=== PATIENT | male | born 1935 | race Two or more races ===

== ENCOUNTER → 2019-11-24 | Outpatient (CLI) | payer MEDICARE, OTHER ==
[~2019-11-24] MED LIST: CHOL20007 PO; DIGO0.12 PO; FINA5TAB4 PO; LEVO500T21 PO; LISI-275 PO; LORA-154 PO; MET25T PO; METF-489 PO; METO-159 PO; MONT10TA34 PO; PRAV20TA3 PO; RIVA20TA PO; SENN1CAP4 PO; TAM04C PO
[2019-11-24 16:21] LABS: White Blood Cell 4.6 10^3/uL (4.4-10.8)
[2019-11-24 16:23] LABS: Hematocrit 45.3 % (41.0-53.0); Hemoglobin 14.7 g/dL (13.5-17.5); Mean Corpuscular Hemoglobin 25.4 pg (28.0-32.0); Mean Corpuscular Hgb Conc. 32.4 g/dL (32.0-36.0); Mean Corpuscular Volume 78.4 fL (80.0-100.0); Platelet Count (auto) 179 10^3/uL (140-450); Red Blood Cells 5.77 10^6/uL (4.5-5.90); Red Cell Distribution Width 18.4 % (11.8-14.3)
[2019-11-24 16:29] LABS: Band Neutrophils % (manual) 0; Basophils % (manual) 0 (0.0-2.0); Blast Cells 0; Metamyelocytes % 0; Myelocytes % 0; Promyelocytes % 0; Reactive Lymphocytes 0
[2019-11-24 16:44] LABS: Albumin 3.2 g/dL (3.4-5.0); Calcium 8.7 mg/dL (8.5-10.1); Potassium 3.8 mmol/L (3.5-5.1)
[2019-11-24 16:48] LABS: Bilirubin, Direct 0.5 mg/dL (0-0.2); Bilirubin, Total 1.1 mg/dL (0.2-1.0)
[2019-11-24 19:34] LABS: Eosinophils % (manual) 4 (0-7); Lymphocytes % (manual) 23 (10.0-50.0); Monocytes % (manual) 16 (0-12)
== END | disposition home or self-care (01) ==
LOC: LAB 15:57
PROVIDERS: ATTEND Internal Medicine Cardiovascular Disease
DX: E03.9 Hypothyroidism, unspecified (principal); K90.9 Intestinal malabsorption, unspecified; C61 Malignant neoplasm of prostate; E29.1 Testicular hypofunction; N39.0 Urinary tract infection, site not specified; D51.9 Vitamin B12 deficiency anemia, unspecified; Z79.899 Other long term (current) drug therapy
CPT/HCPCS: 36415; 80048; 80061; 80076; 80162; 82306; 83036; 84153; 84403; 84443; 85007; 85027

== ENCOUNTER → 2019-12-20 | Outpatient (CLI) | payer MEDICARE, OTHER ==
[~2019-12-20] VITALS: Ht 172.7 cm; Wt 99.8 kg
[~2019-12-20] MED LIST changes: +ADENOSINE 84 MG in GIVE UN-DILUTED 0 ML IV ONE; +ADENOSINE 90 MG/30 ML INJ IV ONE; -CHOL20007 PO; -DIGO0.12 PO; -FINA5TAB4 PO; -LEVO500T21 PO; -LISI-275 PO; -LORA-154 PO; -MET25T PO; -METF-489 PO; -METO-159 PO; -MONT10TA34 PO; -PRAV20TA3 PO; -RIVA20TA PO; -SENN1CAP4 PO; -TAM04C PO
== END | disposition home or self-care (01) ==
LOC: Rad HDHVI 13:40
PROVIDERS: ATTEND Internal Medicine
DX: I10 Essential (primary) hypertension (principal); I25.2 Old myocardial infarction; E11.9 Type 2 diabetes mellitus without complications; E78.00 Pure hypercholesterolemia, unspecified; Z95.0 Presence of cardiac pacemaker; Z82.49 Family history of ischemic heart disease and other diseases of the circulatory system
CPT/HCPCS: 78452; 93005; 96374; 96375; A9500; J0153

== ENCOUNTER 2019-12-27 15:00 | Inpatient (IN) | payer MEDICARE, OTHER ==
[~2019-12-27] VITALS: Ht 172.7 cm; Wt 98.9 kg
[2019-12-27] MEDS ORDERED: PIPERACILLIN-TAZOB 3.375GM 100 ML IV ONE (15:30)
[2019-12-27] MEDS ORDERED: SODIUM CHLORIDE 0.9% 1,000 ML IV ONE (15:31)
[2019-12-27] MEDS ORDERED: SODIUM CHLORIDE 0.9% 1,000 ML IV SCH (16:09)
[2019-12-27] MEDS ORDERED: ALUM & MAG HYDROX-SIMETH LIQ(MAALOX) 30 ML PO PRN ×2 (16:15→23:45)
[2019-12-27] MEDS ORDERED: ACETAMINOPHEN 325 MG TAB PO PRN ×2 (16:15→23:45)
[2019-12-27] MEDS ORDERED: HYDROcodone-ACET 5/325MG TAB PO PRN (16:15)
[2019-12-27] MEDS ORDERED: MORPHINE SULF INJ 2 MG/ML SYRINGE 1ML IV PRN ×4 (16:15→23:45)
[2019-12-27] MEDS ORDERED: ALUM & MAG HYDROX-SIMETH LIQ(MAALOX) 30 ML PO ONE (16:15)
[2019-12-27] MEDS ORDERED: LORazepam 0.5 MG TAB PO PRN ×2 (16:15→23:45)
[2019-12-27] MEDS ORDERED: MORPHINE SULFATE 4 MG/ML SYR/VIAL IV PRN (16:15)
[2019-12-27] MEDS ORDERED: VANCOMYCIN PER PHARMACY 0 MG IV SCH (16:15)
[2019-12-27] MEDS ORDERED: ONDANSETRON HCL 4 MG/2 ML VIAL IV PRN ×2 (16:15→23:45)
[2019-12-27] MEDS ORDERED: DEXTROSE (50%) 50ML SYRG IV PRN ×2 (16:15→23:45)
[2019-12-27] MEDS ORDERED: NITROGLYCERIN 0.4 MG SL TAB SL PRN ×3 (16:15→23:45)
[2019-12-27] MEDS ORDERED: FUROSEMIDE 20 MG/2 ML VIAL IV ONE (16:30)
[2019-12-27 16:52] LABS: Hematocrit 38.2 % (41.0-53.0); Mean Corpuscular Hemoglobin 24.3 pg (28.0-32.0); Mean Corpuscular Hgb Conc. 31.5 g/dL (32.0-36.0); Mean Corpuscular Volume 77.1 fL (80.0-100.0); Platelet Count (auto) 232 10^3/uL (140-450); Red Blood Cells 4.96 10^6/uL (4.5-5.90)
[2019-12-27 16:59] LABS: Band Neutrophils % (manual) 0; Basophils % (manual) 0 (0.0-2.0); Blast Cells 0; Metamyelocytes % 0; Myelocytes % 0; Promyelocytes % 0; Reactive Lymphocytes 0
[2019-12-27] MEDS ORDERED: ACCU-CHEK COMFORT CURVE STRIP VI SCH ×2 (17:00→22:00)
[2019-12-27] MEDS ORDERED: VANCOMYCIN 1GM/250ML 250 ML IV ONE (17:00)
[2019-12-27] MEDS ORDERED: InsuLIN REG 1unit/0.01ml Soln (100units/ml) SC SCH (17:00)
[2019-12-27 17:05] LABS: INR 1.01 (0.9-1.15); Partial Thromboplastin Time 29.3 sec (23.0-31.2)
[2019-12-27 17:07] LABS: Albumin 3.1 g/dL (3.4-5.0); Anion Gap 5 (5-15); Blood Urea Nitrogen 19 mg/dL (7-18); Calcium 8.5 mg/dL (8.5-10.1); Carbon Dioxide 26 mmol/L (21-32); Chloride 106 mmol/L (98-107); Glucose 140 mg/dL (74-106); Potassium 3.9 mmol/L (3.5-5.1); Sodium 137 mmol/L (136-145)
[2019-12-27 17:13] LABS: Cholesterol 108 mg/dL (< 200)
[2019-12-27 17:16] LABS: Alanine Aminotransferase 28 U/L (16-61); Alkaline Phosphatase 207 U/L (45-117); Aspartate Aminotransferase 19 U/L (15-37); BUN/Creatinine Ratio 17.6; Bilirubin, Total 0.9 mg/dL (0.2-1.0); GFR African American 84 mL/min; GFR Non-African American 70 mL/min; HDL Cholesterol 28 mg/dL (40-59); LDL Cholesterol 70 mg/dL (< 100); Total Protein 6.6 g/dL (6.4-8.2); Triglycerides 125 mg/dL (< 150)
[2019-12-27] MEDS: ASPirin 81 mg TAB PO SCH (17:17)
[2019-12-27 17:39] LABS: Urine Bacteria FEW /hpf (None Seen); Urine Blood Negative /uL (Negative); Urine Specific Gravity 1.006 (1.001-1.035); Urine WBC 3 /hpf (0 - 3)
[2019-12-27] MEDS ORDERED: PIPERACILLIN-TAZOB 3.375GM 100 ML IV SCH (18:00)
[2019-12-27 18:05] LABS: Alcohol, Urine < 3.0 mg/dL (0-10); Amphetamine Screen, Urine NEGATIVE (NEGATIVE); Barbiturate Scree,Urine NEGATIVE (NEGATIVE); Benzodiazephine Screen, Urine NEGATIVE (NEGATIVE); Cannabinoid Screen, Urine NEGATIVE (NEGATIVE); Cocaine Screen, Urine NEGATIVE (NEGATIVE); Opiate Scree,Urine NEGATIVE (NEGATIVE); Phencyclidine Screen, Urine NEGATIVE (NEGATIVE)
[2019-12-27 19:55] LABS: Eosinophils % (manual) 6 (0-7); Lymphocytes % (manual) 36 (10.0-50.0); Monocytes % (manual) 20 (0-12)
[2019-12-27 20:16] VITALS: BP 139/72
--- NOTE | 2019-12-27 20:22 | NUR ---
Telemetry admit from [facility] admitted to Telemetry unit after SBAR received. Patient oriented to Chase bolton RN, unit, room, bed, and unit policies regarding patient care and visiting hours. Patient now on continuous telemetry monitoring, tele box # [id number] and telemetry reading on arrival to unit is afib. Patient placed on bedside oxygen, weighed by bedscale and encouraged to call if they need something. All questions and concerns addressed, patient verbalized understanding.
[2019-12-27] MEDS ORDERED: METOPROLOL TARTRATE 25 MG TAB PO ONE (20:30)
[2019-12-27] MEDS ORDERED: FINASTERIDE 5 MG TAB PO ONE (20:30)
[2019-12-27] MEDS ORDERED: TAMSULOSIN HYDROCHLORIDE 0.4 MG CAP PO ONE (20:30)
[2019-12-27] MEDS ORDERED: RIVA20TA PO (21:23)
[2019-12-27] MEDS ORDERED: METF-489 PO (21:23)
[2019-12-27] MEDS ORDERED: LORA-154 PO ×2 (21:23)
[2019-12-27] MEDS ORDERED: MONT10TA34 PO ×2 (21:23)
[2019-12-27] MEDS ORDERED: CHOL20007 PO ×2 (21:23)
[2019-12-27] MEDS ORDERED: SENN1CAP4 PO ×2 (21:23)
[2019-12-27] MEDS ORDERED: PRAV20TA3 PO (21:23)
[2019-12-27] MEDS ORDERED: METO-159 PO (21:23)
[2019-12-27] MEDS ORDERED: DIGO0.12 PO ×2 (21:23)
[2019-12-27] MEDS ORDERED: FINA5TAB4 PO ×2 (21:23)
[2019-12-27] MEDS: METOPROLOL TARTRATE 25 MG TAB PO SCH (22:00)
[2019-12-27] MEDS: InsuLIN REG 1unit/0.01ml Soln (100units/ml) SC SCH (22:00)
[2019-12-27] MEDS ORDERED: CARVEDILOL 3.125 MG TAB PO SCH (22:00)
[2019-12-27] MEDS ORDERED: ATORVASTATIN 20 MG TAB PO SCH (22:00)
[2019-12-27] MEDS: ACCU-CHEK COMFORT CURVE STRIP VI SCH (22:00)
[2019-12-27] MEDS ORDERED: METOPROLOL TARTRATE 25 MG TAB PO SCH (22:00)
[2019-12-28] MEDS: ATORVASTATIN 20 MG TAB PO SCH ×2 (00:18→22:03)
[2019-12-28] MEDS: PIPERACILLIN-TAZOB 3.375GM 100 ML IV SCH ×5 (00:20→23:40)
[2019-12-28 05:00] VITALS: BP 118/68
[2019-12-28] MEDS ORDERED: VANCOMYCIN 1GM/250ML 250 ML IV SCH ×2 (05:00)
[2019-12-28] MEDS: FUROSEMIDE 20 MG/2 ML VIAL IV SCH ×2 (05:53→18:26)
[2019-12-28] MEDS ORDERED: FUROSEMIDE 20 MG/2 ML VIAL IV SCH (06:00)
[2019-12-28] MEDS ORDERED: ACCU-CHEK COMFORT CURVE STRIP VI SCH (07:00)
[2019-12-28] MEDS: InsuLIN REG 1unit/0.01ml Soln (100units/ml) SC SCH ×4 (07:09→22:07)
[2019-12-28] MEDS: ACCU-CHEK COMFORT CURVE STRIP VI SCH ×4 (07:09→22:03)
--- NOTE | 2019-12-28 07:49 | NUR ---
Opening Note Assumed pt care from NOC RN. Pt is a/ox4 with no s/s of distress or SOB. Pt is currently laying in bed with no complaints at this time. Pt has been NPO since 0000 for scheduled LHC. Consents have been signed and placed in chart. Discussed POC with pt; pt verbalized understanding. Safety measures maintained with call light within reach, bed in lowest position and side rails up. Will continue to monitor for changes.
[2019-12-28 09:00] VITALS: BP 101/68
[2019-12-28] MEDS: LISINOPRIL 5 MG TAB PO SCH (09:39)
[2019-12-28] MEDS: METOPROLOL TARTRATE 25 MG TAB PO SCH ×2 (09:39→22:03)
[2019-12-28] MEDS: ASPirin 81 mg TAB PO SCH (09:39)
[2019-12-28] MEDS: DOCUSATE SOD 100 MG CAP PO SCH (09:39)
[2019-12-28] MEDS: FINASTERIDE 5 MG TAB PO SCH (09:43)
[2019-12-28] MEDS ORDERED: CLOPIDOGREL BISULFATE 75 MG TAB PO SCH (10:00)
--- NOTE | 2019-12-28 10:11 | NUR ---
Dr Jackson at Bedside MD to see pt. Aware of LHC today. No new orders at this time. Will continue to monitor.
--- NOTE | 2019-12-28 11:25 | NUR ---
WOUND CARE NOTE: Wound care in to see patient per wound care request regarding "Right Lower Extremity Cellulitis". Bedside nurse took photograph of patient's wound/skin issue upon admission for reference. Patient is 84 years old male admitted for Acute RLE Cellulitis. Patient is resting in bed in Rm. 291A. Patient is awake, alert and oriented. He's self turning and repositioning and his Jameel score is 20. Noted patient's Rt lower leg is erythremic and edematous. There's a large serum filled blister to distal aspect of his Rt lower leg measuring [id number]. Large blister has open area (10x5cm) to lateral aspect of Rt lower leg. Open wound is red with bright red jhony wound, minimal serous drainage noted, no odor noted. There's dark red, ecchymotic area noted to his R 2nd, Rt 3rd toe and R medial foot. Cleansed patient's Rt lower leg wound with wound cleanser, patted dry with gauze, applied Thera honey gauze, covered with abd pad, wrapped with Kerlix and secured with stockinette. Sacral and back also examined, no pressure injury noted over bony prominences. Intact pink, dry scar tissue also noted to patient's distal Rt lateral forearm with linear dry scab , area is clean and dry, asymptomatic, left open to air. Patient tolerated well, repositioned for comfort. Bed in low position, call taylor on hand, bed alarm on. RECOMMENDATION: Nursing to continue with EOD/PRN dressing change to Rt lower leg wound per MD order, elevate affected extremity on pillows, continue monitoring by wound care while patient is hospitalized. Addendum: 12/28/19 at 1510 by Natalie Post RN Amended: Links added.
--- NOTE | 2019-12-28 12:29 | NUR ---
Additional Contact Pt's granddaughter, Bernadette [phone]
[2019-12-28 13:00] VITALS: BP 124/61
--- NOTE | 2019-12-28 13:35 | NUR ---
Pt Taken to Embroidery Supervisor Pt taken down to tree tapping laborer via stretcher. Pt is a/ox4 with no s/s of distress. Report given. All questions answered.
--- NOTE | 2019-12-28 16:48 | NUR ---
Procedural Update ABISAI Douglas updated me on pt's procedure status. At this time, staff is unable to complete procedure due to current case load. Will send pt back up to floor and plan on [facility] tomorrow.
--- NOTE | 2019-12-28 16:50 | NUR ---
Pt Back on Unit a/xo4 with no s/s of distress.
--- NOTE | 2019-12-28 16:55 | NUR ---
IV Insertion and Removal 20G to pt's L upper arm. One attempt made. Clean/sterile technique used. Pt tolerated well. 20 G to pt's L AC d/c'ed. Catheter was removed fully intact. Site is asymptomatic. Pressure was applied to site for 3 minutes with gauze and then wrapped in coban.
[2019-12-28] MEDS: TAMSULOSIN HYDROCHLORIDE 0.4 MG CAP PO SCH (18:26)
--- NOTE | 2019-12-28 19:03 | NUR ---
Pacemaker Interrogation Pacemaker tech called to update me on status of interrogation. Tech is unaware of brand pt's pacemaker is, and pt is unaware at this time as well. Notified tech that I would endorse the identification of brand to SANTINO RN-- possibly speaking to pt's family members. Tech stated that he would check back in the morning. Notified SANTINO BARONE.
--- NOTE | 2019-12-28 19:30 | NUR ---
Opening Shift Note Assumed care of patient, awake and alert. No S/S of distress/SOB or pain. Instructed on POC and to call for assist PRN, will continue to monitor for changes Q1hr and PRN.
[2019-12-28 22:00] VITALS: BP 123/73
[2019-12-29 05:00] VITALS: BP 120/66
[2019-12-29] MEDS: FUROSEMIDE 20 MG/2 ML VIAL IV SCH ×2 (05:49→18:00)
[2019-12-29] MEDS: ACCU-CHEK COMFORT CURVE STRIP VI SCH ×4 (05:49→22:22)
[2019-12-29] MEDS: PIPERACILLIN-TAZOB 3.375GM 100 ML IV SCH ×3 (05:49→18:35)
[2019-12-29] MEDS: InsuLIN REG 1unit/0.01ml Soln (100units/ml) SC SCH ×4 (06:00→22:24)
[2019-12-29 06:05] LABS: Mean Corpuscular Hemoglobin 24.5 pg (28.0-32.0); Platelet Count (auto) 230 10^3/uL (140-450); White Blood Cell 3.3 10^3/uL (4.4-10.8)
[2019-12-29 06:08] LABS: Hematocrit 39.4 % (41.0-53.0); Hemoglobin 12.7 g/dL (13.5-17.5); Mean Corpuscular Hgb Conc. 32.3 g/dL (32.0-36.0); Red Blood Cells 5.18 10^6/uL (4.5-5.90); Red Cell Distribution Width 19.9 % (11.8-14.3)
[2019-12-29 06:14] LABS: Metamyelocytes % 0; Myelocytes % 0; Promyelocytes % 0
[2019-12-29 06:15] LABS: Blast Cells 0; Reactive Lymphocytes 0
[2019-12-29 06:22] LABS: BUN/Creatinine Ratio 15.3; Calcium 8.5 mg/dL (8.5-10.1); Magnesium 2.2 mg/dL (1.6-2.6); Potassium 3.5 mmol/L (3.5-5.1)
[2019-12-29 07:12] LABS: Band Neutrophils % (manual) 4; Basophils % (manual) 1 (0.0-2.0); Eosinophils % (manual) 7 (0-7); Lymphocytes % (manual) 23 (10.0-50.0); Monocytes % (manual) 30 (0-12)
[2019-12-29 09:00] VITALS: BP 105/62
[2019-12-29] MEDS: LISINOPRIL 5 MG TAB PO SCH (10:00)
[2019-12-29] MEDS: ASPirin 81 mg TAB PO SCH (10:00)
[2019-12-29] MEDS: DOCUSATE SOD 100 MG CAP PO SCH (10:00)
[2019-12-29] MEDS: METOPROLOL TARTRATE 25 MG TAB PO SCH ×2 (10:13→22:23)
[2019-12-29] MEDS: FINASTERIDE 5 MG TAB PO SCH (10:13)
[2019-12-29 13:00] VITALS: BP 95/58
[2019-12-29 17:00] VITALS: BP 100/57
--- NOTE | 2019-12-29 18:00 | NUR ---
PAGED DR. WILSON FOR STATUS ON LHC. PER MD WILL DO LHC ON 12/30/19 MORNING.
[2019-12-29] MEDS: TAMSULOSIN HYDROCHLORIDE 0.4 MG CAP PO SCH (18:34)
--- NOTE | 2019-12-29 19:50 | NUR ---
Opening Shift Note Assumed care of patient, awake and alert. No S/S of distress/SOB or pain. informed patient has left heart tomorrow 12/30/2019 to remain npo after midnight, patient verbalizes understanding. Instructed on POC and to call for assist PRN, will continue to monitor for changes Q1hr and PRN.
[2019-12-29 22:00] VITALS: BP 103/52
[2019-12-29] MEDS: POTASSIUM CHL 10 Meq TABLET PO SCH (22:22)
[2019-12-29] MEDS: ATORVASTATIN 20 MG TAB PO SCH (22:22)
[2019-12-29] MEDS: HYDROcodone-ACET 5/325MG TAB PO PRN (22:23)
--- NOTE | 2019-12-30 | NUR ---
PATIENT NPO FOR LEFT HEART CATH IN AM WITH DR WILSON
[2019-12-30] MEDS: PIPERACILLIN-TAZOB 3.375GM 100 ML IV SCH ×4 (00:24→18:27)
[2019-12-30 05:00] VITALS: BP 109/48
[2019-12-30 05:28] LABS: Hemoglobin 12.6 g/dL (13.5-17.5); White Blood Cell 4.4 10^3/uL (4.4-10.8)
[2019-12-30 05:30] LABS: Hematocrit 39.2 % (41.0-53.0); Mean Corpuscular Hemoglobin 24.4 pg (28.0-32.0); Mean Corpuscular Hgb Conc. 32.1 g/dL (32.0-36.0); Platelet Count (auto) 213 10^3/uL (140-450); Red Blood Cells 5.16 10^6/uL (4.5-5.90)
[2019-12-30 05:34] LABS: Red Cell Distribution Width 20.5 % (11.8-14.3)
[2019-12-30 05:36] LABS: Basophils % (manual) 0 (0.0-2.0); Blast Cells 0; Metamyelocytes % 0; Myelocytes % 0; Promyelocytes % 0; Reactive Lymphocytes 0
[2019-12-30] MEDS: FUROSEMIDE 20 MG/2 ML VIAL IV SCH ×2 (05:55→18:28)
[2019-12-30] MEDS: ACCU-CHEK COMFORT CURVE STRIP VI SCH ×4 (05:55→21:17)
[2019-12-30 05:56] LABS: BUN/Creatinine Ratio 16.8; Calcium 8.3 mg/dL (8.5-10.1); Potassium 3.5 mmol/L (3.5-5.1)
[2019-12-30 05:58] LABS: Band Neutrophils % (manual) 2; Eosinophils % (manual) 5 (0-7); Lymphocytes % (manual) 67 (10.0-50.0); Monocytes % (manual) 8 (0-12)
[2019-12-30] MEDS: InsuLIN REG 1unit/0.01ml Soln (100units/ml) SC SCH ×4 (06:18→22:00)
--- NOTE | 2019-12-30 08:07 | NUR ---
PT TAKEN TO MANAGER ANIMATION FOR PROCEDURE. NO S/S OF DISTRESS AT MOMENT. TRANSPORTED VIA BED.
[2019-12-30 08:46] VITALS: BP 92/58
[2019-12-30] MEDS ORDERED: ANGIOMAX 250 MG VIAL IV ONE (09:27)
[2019-12-30] MEDS ORDERED: LIDOCAINE 2%HCL (LOCAL ANESTH.) INJ 20ML MDV ONE (09:28)
[2019-12-30] MEDS ORDERED: IOHEXOL 350 MG/ML 100ML IJ ONE (09:28)
[2019-12-30] MEDS ORDERED: fentaNYL CITRATE 100 MCG/2 ML VL ONE (09:28)
[2019-12-30] MEDS ORDERED: SODIUM CHL 0.9% 0 ML ONE (09:28)
[2019-12-30] MEDS ORDERED: MIDAZOLAM HCL 1MG/1ML-2 ML VIAL ONE (09:28)
[2019-12-30] MEDS ORDERED: HEPARIN SODIUM (PORCINE) 5000 UNITS/ML 1ML VIAL ONE (09:29)
[2019-12-30] MEDS ORDERED: VERAPAMIL 2.5MG/ML INJ 2ML VIAL IV ONE (09:29)
[2019-12-30] MEDS: METOPROLOL TARTRATE 25 MG TAB PO SCH ×2 (10:00→21:17)
[2019-12-30] MEDS: LISINOPRIL 5 MG TAB PO SCH (10:00)
--- NOTE | 2019-12-30 11:00 | NUR ---
HOLD P.T. PATIENT WENT DOWN TO HARDWARE ENGINEERING MANAGER TODAY.
--- NOTE | 2019-12-30 11:46 | NUR ---
PT BACK FROM GUEST SERVICES ASSOCIATE. ALERT, AWAKE, ORIENTEDx4. NO S/S OF DISTRESS. V/S STABLE. VASC BAND TO RIGHT WRIST, SITE CDI AT MOMENT. WILL CONTINUE TO MONITOR.
[2019-12-30 12:46] VITALS: BP 109/58
--- NOTE | 2019-12-30 13:00 | NUR ---
VASC BAND DEFLATED, SITE CDI NO COMPLICATIONS NOTED. SENSATION INTACT, SKIN WARM TO TOUCH, +2 PULSES TO ALL EXTREMITIES. TEGADERM DRESSING TO SITE. BED LOCKED AND IN LOWEST POSITION, CALL LIGHT WITHIN REACH. WILL CONTINUE TO MONITOR.
[2019-12-30] MEDS: POTASSIUM CHL 10 Meq TABLET PO SCH ×2 (13:29→21:17)
[2019-12-30] MEDS: ASPirin 81 mg TAB PO SCH (13:29)
[2019-12-30] MEDS: DOCUSATE SOD 100 MG CAP PO SCH (13:29)
[2019-12-30] MEDS: FINASTERIDE 5 MG TAB PO SCH (13:30)
[2019-12-30] MEDS: SODIUM CHLOR 0.9% PF (SALINE LOCK) 10ML VIAL/SYR IV SCH ×2 (13:30→21:17)
--- NOTE | 2019-12-30 13:48 | NUR ---
assessment Patient is a 84 year old Algerian speaking male who is alert and oriented. Eden LANDON1 translated for us. . Prior to admission patient lived home with family and functioned independently. Patient informed me he is able to care for his own ADLs. Per patient he will return home to his prior living arrangements post discharge and family will transport him home. Patient informed us he has a rollator for home use. Patient informed us he has home health, but does not remember the name. Patient [place] Patient will need a resumption order on discharge for home health. I have left a message for patients son in law to return my call for the name of home health company. I informed patient he has a right to speak to a social science analyst regarding all care. I informed patient he has a right to participate in any and all discharge planning. Patient does not have a POA and advanced directive. I have offered patient information on POA and advanced directives. I informed the patient the advantages and benefits of having an Advanced Directive. Patient verbalized understanding and agreed to discharge plan. Addendum: 12/30/19 at 1353 by Denisha CORREIA Amended: Links added.
--- NOTE | 2019-12-30 14:20 | NUR ---
WOUND CARE PROVIDED TO RLE. CLEANSED AND DRESSING APPLIED. PT TOLERATED PROCEDURE WELL. WOUND Cx SPECIMEN COLLECTED; SENT TO LAB.
--- NOTE | 2019-12-30 16:23 | NUR ---
Nutrition Assessment Notes Please refer to link for full assessment notes. Est Energy needs: 0527-4153 kcals (17-20 kcal/kgBW) Est Protein needs: 101-111 gms/day (1.0-1.1 gm/kgBW) Will continue to monitor and reassess prn. Addendum: 12/30/19 at [address] Amended: Links added.
[2019-12-30 16:46] VITALS: BP 127/71
[2019-12-30] MEDS: TAMSULOSIN HYDROCHLORIDE 0.4 MG CAP PO SCH (18:28)
[2019-12-30] MEDS: SODIUM CHLORIDE 0.9% 1,000 ML IV SCH (18:29)
[2019-12-30] MEDS: ATORVASTATIN 20 MG TAB PO SCH (21:17)
[2019-12-30 22:00] VITALS: BP 114/67
[2019-12-31 05:00] VITALS: BP 115/69
[2019-12-31] MEDS: PIPERACILLIN-TAZOB 3.375GM 100 ML IV SCH ×4 (05:43→18:57)
[2019-12-31] MEDS: ACCU-CHEK COMFORT CURVE STRIP VI SCH ×4 (05:43→22:00)
[2019-12-31] MEDS: SODIUM CHLORIDE 0.9% 1,000 ML IV SCH ×2 (05:43→17:25)
[2019-12-31] MEDS: SODIUM CHLOR 0.9% PF (SALINE LOCK) 10ML VIAL/SYR IV SCH ×3 (05:43→22:00)
[2019-12-31] MEDS: FUROSEMIDE 20 MG/2 ML VIAL IV SCH ×2 (06:34→17:56)
[2019-12-31] MEDS: InsuLIN REG 1unit/0.01ml Soln (100units/ml) SC SCH ×4 (06:35→22:00)
--- NOTE | 2019-12-31 07:30 | NUR ---
Opening Note Assumed care of patient, awake and alert. No S/S of distress/SOB or pain. Instructed on POC and to call for assist as needed, will continue to monitor.
[2019-12-31 09:00] VITALS: BP 100/67
[2019-12-31] MEDS: HYDROcodone-ACET 5/325MG TAB PO PRN ×2 (10:31→17:05)
[2019-12-31] MEDS: DOCUSATE SOD 100 MG CAP PO SCH (10:31)
[2019-12-31] MEDS: FINASTERIDE 5 MG TAB PO SCH (10:31)
[2019-12-31] MEDS: POTASSIUM CHL 10 Meq TABLET PO SCH ×2 (10:31→22:00)
[2019-12-31] MEDS: ASPirin 81 mg TAB PO SCH (10:31)
[2019-12-31] MEDS: LISINOPRIL 5 MG TAB PO SCH (10:32)
[2019-12-31] MEDS: METOPROLOL TARTRATE 25 MG TAB PO SCH (10:32)
--- NOTE | 2019-12-31 10:32 | NUR ---
Pain Patient complaining of pain 5/10 to right lower leg. Patient has cellulitis with a blistered wound. Patient also complaining of anxiety. Patient visibly restless and SOB. Patient states he received a call from family with bad news and he feels like he can't breathe. Will give Laurel 5/325mg PO for pain, and Lorazepam 0.5 mg PO for anxiety at this time and continue to monitor.
[2019-12-31 13:00] VITALS: BP_SYST 105; BP_SYST 131; BP_DIAS 59; BP_DIAS 61
[2019-12-31 17:00] VITALS: BP 115/59
--- NOTE | 2019-12-31 17:33 | NUR ---
PATIENT IS SBA WITH ACTIVITIES AND IS ABLE TO AMBULATE 250 FEET. D/C FROM P.T. NURSING TO ASSIST PATIENT NEEDED.
[2019-12-31] MEDS: TAMSULOSIN HYDROCHLORIDE 0.4 MG CAP PO SCH (17:56)
--- NOTE | 2019-12-31 18:00 | NUR ---
WOUND CARE Wound to right lateral calf cleansed with wound cleanser, pat dry with gauze. Thera-honey gauze sheet applied, covered with ABD pad and wrapped with Kerlix. Patient tolerated well.
[2019-12-31 22:00] VITALS: BP 117/69
[2019-12-31] MEDS: ATORVASTATIN 20 MG TAB PO SCH (22:00)
[2020-01-01] MEDS: METOPROLOL TARTRATE 25 MG TAB PO SCH ×3 (00:16→21:29)
[2020-01-01] MEDS: PIPERACILLIN-TAZOB 3.375GM 100 ML IV SCH ×5 (00:28→23:38)
[2020-01-01 05:00] VITALS: BP 114/68
[2020-01-01] MEDS: SODIUM CHLOR 0.9% PF (SALINE LOCK) 10ML VIAL/SYR IV SCH ×3 (06:00→21:29)
[2020-01-01] MEDS: FUROSEMIDE 20 MG/2 ML VIAL IV SCH ×2 (06:00→17:44)
[2020-01-01] MEDS: InsuLIN REG 1unit/0.01ml Soln (100units/ml) SC SCH ×4 (07:00→21:37)
[2020-01-01] MEDS: ACCU-CHEK COMFORT CURVE STRIP VI SCH ×4 (07:07→21:30)
[2020-01-01] MEDS: SODIUM CHLORIDE 0.9% 1,000 ML IV SCH (07:15)
--- NOTE | 2020-01-01 07:20 | NUR ---
opening shift note/pain assumed care patient AOx4 complaining of pain 5/10 to right lower leg. Will medicate with [place] 5/325 as per MD orders. Patient updated on POC for the day and to call for assistance as needed. Patient verbalized understanding. Bed in low position, locked and call light within reach. Will continue care
[2020-01-01] MEDS: HYDROcodone-ACET 5/325MG TAB PO PRN (07:44)
[2020-01-01 09:00] VITALS: BP 117/57
[2020-01-01] MEDS: ASPirin 81 mg TAB PO SCH (09:51)
[2020-01-01] MEDS: DOCUSATE SOD 100 MG CAP PO SCH (09:51)
[2020-01-01] MEDS: POTASSIUM CHL 10 Meq TABLET PO SCH ×2 (09:52→21:29)
[2020-01-01] MEDS: FINASTERIDE 5 MG TAB PO SCH (09:52)
[2020-01-01] MEDS: LISINOPRIL 5 MG TAB PO SCH (09:53)
[2020-01-01 13:00] VITALS: BP 123/66
[2020-01-01 16:37] VITALS: BP 114/64
[2020-01-01] MEDS: TAMSULOSIN HYDROCHLORIDE 0.4 MG CAP PO SCH (17:44)
--- NOTE | 2020-01-01 19:10 | NUR ---
OPENING NOTE Received report from day shift RN. Patient is resting at this time with no s/s of distress noted. Bed is in lowest/locked position with side rails up X's 2 and call light is within reach of patient. Will educate patient on POC. Will continue care.
[2020-01-01] MEDS: ATORVASTATIN 20 MG TAB PO SCH (21:28)
[2020-01-01 22:00] VITALS: BP 136/59
[2020-01-02 05:00] VITALS: BP 118/68
[2020-01-02] MEDS: SODIUM CHLORIDE 0.9% 1,000 ML IV SCH ×2 (05:41→09:13)
[2020-01-02] MEDS: PIPERACILLIN-TAZOB 3.375GM 100 ML IV SCH ×3 (06:28→18:38)
[2020-01-02] MEDS: SODIUM CHLOR 0.9% PF (SALINE LOCK) 10ML VIAL/SYR IV SCH ×3 (06:28→21:48)
[2020-01-02] MEDS: FUROSEMIDE 20 MG/2 ML VIAL IV SCH (06:28)
[2020-01-02] MEDS: ACCU-CHEK COMFORT CURVE STRIP VI SCH ×4 (06:29→21:49)
[2020-01-02] MEDS: InsuLIN REG 1unit/0.01ml Soln (100units/ml) SC SCH ×4 (06:29→21:56)
--- NOTE | 2020-01-02 07:40 | NUR ---
Opening Note Received report from slot shift supervisor RN. Patient is resting in bed, no signs or symptoms of distress noted at this time. Patient is on room air, respirations even and unlabored. Reviewed plan of care with patient. Bed in low and locked position, call light within reach. Will continue to monitor Q1 hour and PRN.
[2020-01-02 09:00] VITALS: BP 111/52
[2020-01-02] MEDS: LISINOPRIL 5 MG TAB PO SCH (09:10)
[2020-01-02] MEDS: DOCUSATE SOD 100 MG CAP PO SCH (09:10)
[2020-01-02] MEDS: FINASTERIDE 5 MG TAB PO SCH (09:11)
[2020-01-02] MEDS: ASPirin 81 mg TAB PO SCH (09:11)
[2020-01-02] MEDS: METOPROLOL TARTRATE 25 MG TAB PO SCH ×2 (09:11→21:48)
[2020-01-02] MEDS: POTASSIUM CHL 10 Meq TABLET PO SCH (09:11)
--- NOTE | 2020-01-02 11:55 | NUR ---
Dr. Jackson at bedside MD discussing plan of care with patient and this RN. New orders received. Will implement new orders. Will continue to monitor Q1 hour and PRN.
--- NOTE | 2020-01-02 12:51 | NUR ---
Nutrition Followup Notes Pt wt is 99.6 kg. Pt is with a Cardiac 2gNa diet, appetite is good aeb 75% PO intake over 4 meals. Pt with no distress. Will continue to monitor PO status, skin status, pertinent labs and weight trends. Will f/u in 3-5 days. Recommendation: Consider a daily MVI with 500 mg Vit C bid for wounds. Est Energy needs: 2019-0428 kcals (17-20 kcal/kgBW) Est Protein needs: 101-111 gms/day (1.0-1.1 gm/kgBW) Will continue to monitor and reassess prn. LABS: GLUC 127 H, ALB 3.1 L GI: Pt had 1 BM on 12/29 per RN doc BS: 19 low risk. Refer to wound assessment report for full details. PES: 1) Obesity r/t energy intake in excess of energy needs aeb 144% IBW and BMI of 33.8 kg/m2 2) Altered nutriion related lab values r/t current/chronic medical condition aeb hyperglycemia, elev RFTs, low GFR, hypocalcemia, hypoalbuminemia Comments Will continue to monitor PO status, skin status, pertinent labs and weight trends. Will f/u in 3-5 days. 1) Continue to closely monitor pt PO intake to meet at least 75% of meals 2) Continue current plan of care
[2020-01-02 13:00] VITALS: BP 133/79
[2020-01-02 17:00] VITALS: BP 108/63
--- NOTE | 2020-01-02 17:20 | NUR ---
Dr. Rodriguez at bedside MD discussing plan of care with patient and this RN. Patient to have procedure on Thursday. Patient verbalized understanding. Will continue to monitor Q1 hour and PRN.
[2020-01-02] MEDS: TAMSULOSIN HYDROCHLORIDE 0.4 MG CAP PO SCH (18:38)
--- NOTE | 2020-01-02 19:15 | NUR ---
Closing Note Report given to cerner analyst RN. No signs or symptoms of distress noted at this time.
--- NOTE | 2020-01-02 19:20 | NUR ---
OPENING NOTE Received report from day shift RN. Patient is resting in bed with eyes closed. There are no s/s of any distress or pain noted. Bed is in lowest/locked position with side rails up X's 2 and call light is within reach of patient. Will educate patient on POC and to use call light when in need of any assistance. Will continue care.
[2020-01-02] MEDS: ATORVASTATIN 20 MG TAB PO SCH (21:48)
--- NOTE | 2020-01-02 21:57 | NUR ---
GAVE REPORT ENDORSED CARE TO RICE CLEANING MACHINE TENDER RNCLAUDIO. PATIENT A&O X's 4 WITH NO S/S OF DISTRESS.
[2020-01-02 22:19] VITALS: BP 124/74
[2020-01-03] MEDS: PIPERACILLIN-TAZOB 3.375GM 100 ML IV SCH ×4 (00:45→17:52)
[2020-01-03 05:00] VITALS: BP 108/73
[2020-01-03] MEDS: InsuLIN REG 1unit/0.01ml Soln (100units/ml) SC SCH ×4 (05:26→21:54)
[2020-01-03] MEDS: SODIUM CHLOR 0.9% PF (SALINE LOCK) 10ML VIAL/SYR IV SCH ×3 (05:26→21:47)
[2020-01-03] MEDS: ACCU-CHEK COMFORT CURVE STRIP VI SCH ×4 (05:27→21:46)
[2020-01-03 06:24] LABS: Potassium 3.6 mmol/L (3.5-5.1)
[2020-01-03 06:32] LABS: BUN/Creatinine Ratio 14.6; Calcium 8.6 mg/dL (8.5-10.1)
--- NOTE | 2020-01-03 07:40 | NUR ---
Opening Note Received report from operation shift supervisor RN. Patient is resting in bed, no signs or symptoms of distress noted at this time. Patient is on room air, respirations even and unlabored. Reviewed plan of care with patient. Bed in low and locked position, call light within reach. Will continue to monitor Q1 hour and PRN.
--- NOTE | 2020-01-03 08:40 | NUR ---
Patient taken down to radiology
--- NOTE | 2020-01-03 08:52 | NUR ---
patient back to room
[2020-01-03 09:00] VITALS: BP 104/64
[2020-01-03] MEDS: ASPirin 81 mg TAB PO SCH (11:37)
[2020-01-03] MEDS: METOPROLOL TARTRATE 25 MG TAB PO SCH ×2 (11:37→21:46)
[2020-01-03] MEDS: FINASTERIDE 5 MG TAB PO SCH (11:37)
[2020-01-03] MEDS: DOCUSATE SOD 100 MG CAP PO SCH (11:37)
[2020-01-03] MEDS: LISINOPRIL 5 MG TAB PO SCH (11:38)
--- NOTE | 2020-01-03 12:05 | NUR ---
Dr. Jackson at station MD at station discussing plan of care with this RN. No new orders received. Will continue to monitor Q1 hour and PRN.
--- NOTE | 2020-01-03 12:39 | NUR ---
D/C Planning Regarding social service consult for home health safety evaluation, physical therapy, medication management and vitals. Patient is on service with [facility] [facility]. Faxed clinical information to agency. Per Kimi with [employer] they will resume service for patient and will be seen within 24-48hrs upon d/c day.
[2020-01-03 17:00] VITALS: BP 114/78
[2020-01-03] MEDS: TAMSULOSIN HYDROCHLORIDE 0.4 MG CAP PO SCH (17:53)
--- NOTE | 2020-01-03 19:10 | NUR ---
Closing Note Report given to table games shift manager RN. No signs or symptoms of distress noted at this time.
--- NOTE | 2020-01-03 19:20 | NUR ---
OPENING NOTE Received report from day shift RN. Patient is resting in bed with eyes closed. There are no s/s of any distress or pain noted. Bed is in lowest/locked position with side rails up X's 2 and call light is within reach of patient. Will educate patient on POC and to use call light when in need of any assistance. Will continue care. Patient to be NPO at midnight.
[2020-01-03] MEDS: ATORVASTATIN 20 MG TAB PO SCH (21:46)
[2020-01-03 22:00] VITALS: BP 130/71
--- NOTE | 2020-01-04 | NUR ---
PATIENT NPO PATIENT VERBALIZED UNDERSTANDING. REMOVED FLUIDS FROM BEDSIDE
[2020-01-04] MEDS: PIPERACILLIN-TAZOB 3.375GM 100 ML IV SCH ×5 (00:15→23:49)
[2020-01-04 05:00] VITALS: BP 122/66
[2020-01-04] MEDS: SODIUM CHLOR 0.9% PF (SALINE LOCK) 10ML VIAL/SYR IV SCH ×3 (05:42→22:12)
[2020-01-04 06:46] LABS: Basophils # (auto) 0.1 10 ^3/uL (0-0.2); Eosinophils # (auto) 0.4 10 ^3/uL (0-0.8); Lymphocytes % (auto) 28.9 % (10.0-50.0); Monocytes # (auto) 0.9 10 ^3/uL (0-1.3); Neutrophils % (auto) 54.1 % (37.0-80.0); Red Cell Distribution Width 19.8 % (11.8-14.3)
[2020-01-04] MEDS: InsuLIN REG 1unit/0.01ml Soln (100units/ml) SC SCH ×4 (06:46→22:25)
[2020-01-04] MEDS: ACCU-CHEK COMFORT CURVE STRIP VI SCH ×4 (06:47→22:12)
[2020-01-04 06:49] LABS: Basophils % (auto) 0.9 % (0.0-2.0); Eosinophils % (auto) 5.1 % (0.0-7.0); Hematocrit 42.1 % (41.0-53.0); Hemoglobin 13.9 g/dL (13.5-17.5); Lymphocytes # (auto) 2.5 10 ^3/uL (0.4-5.4); Mean Corpuscular Hemoglobin 24.9 pg (28.0-32.0); Mean Corpuscular Hgb Conc. 33.1 g/dL (32.0-36.0); Mean Corpuscular Volume 75.4 fL (80.0-100.0); Neutrophils # (auto) 4.6 10 ^3/uL (1.6-8.6); Platelet Count (auto) 299 10^3/uL (140-450); Red Blood Cells 5.58 10^6/uL (4.5-5.90); White Blood Cell 8.5 10^3/uL (4.4-10.8)
[2020-01-04 07:02] LABS: INR 1.07 (0.9-1.15)
[2020-01-04 07:03] LABS: Calcium 8.6 mg/dL (8.5-10.1); Potassium 3.9 mmol/L (3.5-5.1)
[2020-01-04 07:05] LABS: BUN/Creatinine Ratio 17.1
--- NOTE | 2020-01-04 08:35 | NUR ---
PT WALKING IN HALLWAY BY HIMSELF. D/C FROM P.T. NURSING TO ASSIST PATIENT NEEDED.
[2020-01-04 08:45] VITALS: BP 100/58
[2020-01-04] MEDS: ASPirin 81 mg TAB PO SCH (10:00)
[2020-01-04] MEDS: DOCUSATE SOD 100 MG CAP PO SCH (10:05)
[2020-01-04] MEDS: FINASTERIDE 5 MG TAB PO SCH (10:06)
[2020-01-04] MEDS: METOPROLOL TARTRATE 25 MG TAB PO SCH ×2 (10:06→22:22)
[2020-01-04] MEDS: LISINOPRIL 5 MG TAB PO SCH (10:07)
[2020-01-04 13:00] VITALS: BP_SYST 101; BP_SYST 133; BP_DIAS 59; BP_DIAS 76
[2020-01-04] MEDS ORDERED: LIDOCAINE 1% HCL (LOCAL ANESTH.) INJ 20ML MDV ONE (13:17)
[2020-01-04] MEDS ORDERED: BUPIVACAINE HCL 50 ML ONE (13:17)
--- NOTE | 2020-01-04 13:25 | NUR ---
Off Unit Patient brought to pre-op for procedure.
[2020-01-04] MEDS ORDERED: MIDAZOLAM HCL 1MG/1ML-2 ML VIAL ONE (13:45)
[2020-01-04] MEDS ORDERED: METOCLOPRAMIDE HCL 5MG/ml INJ 2ml VIAL ONE (13:46)
[2020-01-04] MEDS ORDERED: ACCU-CHEK COMFORT CURVE STRIP VI ONE (14:00)
[2020-01-04] MEDS ORDERED: ONDANSETRON HCL 4 MG/2 ML VIAL IV PRN (14:00)
[2020-01-04] MEDS ORDERED: NALOXONE HCL 0.4 MG/ML VIAL IV PRN (14:00)
[2020-01-04] MEDS ORDERED: HYDROmorphone HCL 2 MG/ML VL IV PRN (14:00)
--- NOTE | 2020-01-04 15:05 | NUR ---
On Unit Patient returned to unit after having incision and drainage done. Patient is awake but drowsy. Dressing to right leg dry and intact. Call light placed within reach and patient encouraged to call for assistance. Bed alarm on for safety.
[2020-01-04] MEDS: TAMSULOSIN HYDROCHLORIDE 0.4 MG CAP PO SCH (18:10)
--- NOTE | 2020-01-04 19:40 | NUR ---
Opening Shift Note Assumed care of patient, resting in bed with breaths even and unlabored. No S/S of distress/SOB or pain noted. Bed is in lowest locked position with bed rails up x2 and call light is within reach of the patient. Instructed on POC and to call for assist PRN.
[2020-01-04] MEDS: ATORVASTATIN 20 MG TAB PO SCH (22:20)
[2020-01-05 05:19] VITALS: BP 116/65
[2020-01-05] MEDS: SODIUM CHLOR 0.9% PF (SALINE LOCK) 10ML VIAL/SYR IV SCH ×2 (05:39→14:13)
[2020-01-05] MEDS: PIPERACILLIN-TAZOB 3.375GM 100 ML IV SCH ×2 (05:39→12:42)
--- NOTE | 2020-01-05 05:46 | NUR ---
Temperature reassessed: Patients temperature per HOSE STRIPPER in AM was 99.8. Oral temperature was 98.9 At this time when reassessed by this RN. Patient resting in bed with breaths even and unlabored. Continue to care.
[2020-01-05] MEDS: InsuLIN REG 1unit/0.01ml Soln (100units/ml) SC SCH ×2 (06:26→12:41)
[2020-01-05] MEDS: ACCU-CHEK COMFORT CURVE STRIP VI SCH ×2 (06:27→11:30)
[2020-01-05 07:44] LABS: BUN/Creatinine Ratio 15.9; Calcium 8.7 mg/dL (8.5-10.1)
[2020-01-05 09:00] VITALS: BP 122/66
[2020-01-05] MEDS: DOCUSATE SOD 100 MG CAP PO SCH (09:18)
[2020-01-05] MEDS: ASPirin 81 mg TAB PO SCH (09:18)
[2020-01-05] MEDS: FINASTERIDE 5 MG TAB PO SCH (10:03)
[2020-01-05] MEDS: LISINOPRIL 5 MG TAB PO SCH (10:03)
[2020-01-05] MEDS: METOPROLOL TARTRATE 25 MG TAB PO SCH (10:03)
[2020-01-05] MEDS ORDERED: LEVO500T21 PO ×2 (11:24)
[2020-01-05] MEDS ORDERED: LISI-275 PO ×2 (11:24)
[2020-01-05] MEDS ORDERED: METF-489 PO ×2 (11:24)
[2020-01-05] MEDS ORDERED: TAM04C PO ×2 (11:24)
[2020-01-05] MEDS ORDERED: PRAV20TA3 PO ×2 (11:24)
[2020-01-05] MEDS ORDERED: RIVA20TA PO ×2 (11:24)
[2020-01-05] MEDS ORDERED: MET25T PO ×2 (11:24)
[2020-01-05 12:51] VITALS: BP 122/66
--- NOTE | 2020-01-05 14:12 | NUR ---
Nutrition Followup Notes Pt wt is 98.9 kg. Pt was with care team at time of rounds. Pt with no no distress, feels ok per MD note. Pt with [id number] diet with good intake aeb pt with 100% po intake x4 per RN note. Pt is awaiting DC home with health services Recommendation: Consider a daily MVI with 500 mg Vit C bid for wounds. Est Energy needs: 7696-6285 kcals (17-20 kcal/kgBW) Est Protein needs: 101-111 gms/day (1.0-1.1 gm/kgBW) Will continue to monitor and reassess prn. LABS: BUN 20H, GLUC 161H, Alb 3.1L GI: Pt had 1 BM on 12/29 per RN doc BS: 19 low risk. Refer to wound assessment report for full details. PES: 1) Obesity r/t energy intake in excess of energy needs aeb 144% IBW and BMI of 33.8 kg/m2 2) Altered nutriion related lab values r/t current/chronic medical condition aeb hyperglycemia, elev RFTs, low GFR, hypocalcemia, hypoalbuminemia Comments Will continue to monitor PO status, skin status, pertinent labs and weight trends. Will f/u in 3-5 days. 1) Continue to closely monitor pt PO intake to meet at least 75% of meals 2) Continue current plan of care
[2020-01-05] MEDS ORDERED: DAKINS QUARTER STR 0.125% (NaHypochlorite) 473 ML TOPICAL SOL TOP ONE ×2 (16:00)
--- NOTE | 2020-01-05 16:03 | NUR ---
re-assessment Per ss consult updated [facility] to add wound care. Updated ss consult has been sent to [facility]. Per Kimi at [facility] has received updated order. Per Kimi service will start 01/06/2020. Addendum: 01/05/20 at 1606 by Denisha CORREIA Amended: Links added.
--- NOTE | 2020-01-05 16:44 | NUR ---
DRESSING CHANGED PER Juany HOGAN ORDERS. PATIENT TOLERATED WELL.
--- NOTE | 2020-01-05 16:45 | NUR ---
DISCHARGE WOUND PHOTOS TAKEN.
--- NOTE | 2020-01-05 17:12 | NUR ---
Discharge instructions given as ordered. Encourage to follow up with PMD as instructed. instructed to follow up with PCP, Discharge clinic, and Podiatry, and Cardiac. Instructed to take all medications as prescribed. Instructed of [facility]. All questions and concerns addressed. Patient verbalized understanding. IV removed with catheter intact, pressure dressing applied. Telemetry unit returned to ICU. Patient taken to vehicle via wheelchair with all personal belongings, accompanied by staff and family member. No distress noted at time of departure.
== END 2020-01-05 17:20 | disposition home health service (06) | DRG 286 ==
LOC: ER 15:00 → WEST WING 15:01 → TELE-WESTW 19:44 → ER 19:44 → TELE-WESTW 21:04
PROVIDERS: ADMIT Hospitalist; ATTEND Internal Medicine
PROC: 4A023N7 Measurement of Cardiac Sampling and Pressure, Left Heart, Percutaneous Approach (ICD-10-PCS; principal; 2019-12-30)
PROC: B2111ZZ Fluoroscopy of Multiple Coronary Arteries using Low Osmolar Contrast (ICD-10-PCS; 2019-12-30)
PROC: B2151ZZ Fluoroscopy of Left Heart using Low Osmolar Contrast (ICD-10-PCS; 2019-12-30)
PROC: 0Y9H3ZZ Drainage of Right Lower Leg, Percutaneous Approach (ICD-10-PCS; 2020-01-04)
PROC: 4B02XSZ Measurement of Cardiac Pacemaker, External Approach (ICD-10-PCS; 2020-01-05)
DX: I20.8 Other forms of angina pectoris (principal); I50.33 Acute on chronic diastolic (congestive) heart failure; L03.115 Cellulitis of right lower limb; E44.0 Moderate protein-calorie malnutrition; I48.20 Chronic atrial fibrillation, unspecified; L02.415 Cutaneous abscess of right lower limb; I11.0 Hypertensive heart disease with heart failure; E66.01 Morbid (severe) obesity due to excess calories; D64.9 Anemia, unspecified; E78.5 Hyperlipidemia, unspecified; E11.9 Type 2 diabetes mellitus without complications; N40.0 Benign prostatic hyperplasia without lower urinary tract symptoms; Z68.33 Body mass index [BMI] 33.0-33.9, adult; Z79.84 Long term (current) use of oral hypoglycemic drugs; Z79.01 Long term (current) use of anticoagulants; Z95.0 Presence of cardiac pacemaker; M19.90 Unspecified osteoarthritis, unspecified site; S80.11XA Contusion of right lower leg, initial encounter
CPT/HCPCS: 36415; 71045; 73700; 80048; 80053; 80061; 80162; 80307; 81001; 82962; 83036; 83605; 83735; 83880; 84484; 85007; 85025; 85027; 85610; 85730; 86850; 86900; 86901; 87040; 87070; 87081; 87086; 87205; 93005; 93306; 93458; 93970; 97110; 97116; 97530; 99152; G0378; J1815; J2001; J2250; J2543; J3490

== ENCOUNTER 2020-01-06 18:41 | Emergency (ER) | payer MEDICARE, OTHER ==
[~2020-01-06] VITALS: Ht 172.7 cm; Wt 99.8 kg
[~2020-01-06 18:41] MED LIST changes: -ADENOSINE 84 MG in GIVE UN-DILUTED 0 ML IV ONE; -ADENOSINE 90 MG/30 ML INJ IV ONE; +CHOL20007 PO; +DIGO0.12 PO; +FINA5TAB4 PO; +LEVO500T21 PO; +LISI-275 PO; +LORA-154 PO; +MET25T PO; +METF-489 PO; +METO-159 PO; +MONT10TA34 PO; +PRAV20TA3 PO; +RIVA20TA PO; +SENN1CAP4 PO; +TAM04C PO
[2020-01-06 23:59] VITALS: BP 136/49
== END 2020-01-07 02:15 | disposition home or self-care (01) ==
LOC: ER 18:41
DX: E11.22 Type 2 diabetes mellitus with diabetic chronic kidney disease (principal); I12.9 Hypertensive chronic kidney disease with stage 1 through stage 4 chronic kidney disease, or unspecified chronic kidney disease; N18.9 Chronic kidney disease, unspecified; Z48.01 Encounter for change or removal of surgical wound dressing

== ENCOUNTER → 2020-02-02 | Outpatient (CLI) | payer MEDICARE, OTHER ==
[~2020-02-02] MED LIST changes: -METO-159 PO
== END | disposition home or self-care (01) ==
LOC: LAB 15:32
PROVIDERS: ATTEND Internal Medicine
DX: E11.9 Type 2 diabetes mellitus without complications (principal); I10 Essential (primary) hypertension; I50.9 Heart failure, unspecified
CPT/HCPCS: 36415; 80162; 82043

== ENCOUNTER → 2020-02-27 | Outpatient (CLI) | payer MEDICARE, OTHER | END | disposition home or self-care (01) | LOC: XY 14:58 | PROVIDERS: ATTEND Internal Medicine | DX: S81.801A Unspecified open wound, right lower leg, initial encounter (principal); X58.XXXA Exposure to other specified factors, initial encounter; Y93.89 Activity, other specified; Y92.89 Other specified places as the place of occurrence of the external cause; Y99.8 Other external cause status | CPT/HCPCS: 93926 ==

== ENCOUNTER → 2020-03-03 | Outpatient (CLI) | payer MEDICARE, OTHER | END | disposition home or self-care (01) | LOC: LAB 09:21 | PROVIDERS: ATTEND Internal Medicine | DX: E11.9 Type 2 diabetes mellitus without complications (principal) | CPT/HCPCS: 36415; 83036 ==

== ENCOUNTER → 2020-03-31 | Outpatient (CLI) | payer MEDICARE, OTHER | END | disposition home or self-care (01) | LOC: LAB 09:02 | PROVIDERS: ATTEND Internal Medicine | DX: E55.9 Vitamin D deficiency, unspecified (principal) | CPT/HCPCS: 82306 ==

== ENCOUNTER → 2020-04-28 | Outpatient (CLI) | payer OTHER | END | disposition home or self-care (01) | LOC: LAB 09:12 | PROVIDERS: ATTEND Internal Medicine | DX: I11.0 Hypertensive heart disease with heart failure (principal); I50.9 Heart failure, unspecified; E55.9 Vitamin D deficiency, unspecified | CPT/HCPCS: 82306; 83880 ==

== ENCOUNTER 2020-06-01 17:13 | Inpatient (IN) | payer OTHER ==
[~2020-06-01] VITALS: Ht 175.3 cm; Wt 100.6 kg
[~2020-06-01 17:13] MED LIST changes: -LEVO500T21 PO; +LEVO500T31 PO; -LORA-154 PO; +LORA-483 PO; -MONT10TA34 PO; +MONT10TA42 PO
[2020-06-01] MEDS ORDERED: ACETAMINOPHEN 325 MG TAB PO ONE (17:30)
[2020-06-01 18:05] LABS: Basophils # (auto) 0 10 ^3/uL (0-0.2); Eosinophils # (auto) 0 10 ^3/uL (0-0.8); Eosinophils % (auto) 0.1 % (0.0-7.0); Hematocrit 40.9 % (41.0-53.0); Mean Corpuscular Volume 67.8 fL (80.0-100.0); Neutrophils # (auto) 4.1 10 ^3/uL (1.6-8.6); Nucleated Red Blood Cells % 0.1 %
[2020-06-01 18:07] LABS: Basophils % (auto) 0.2 % (0.0-2.0); Hemoglobin 13.2 g/dL (13.5-17.5); Lymphocytes % (auto) 16.2 % (10.0-50.0); Mean Corpuscular Hemoglobin 21.8 pg (28.0-32.0); Mean Corpuscular Hgb Conc. 32.2 g/dL (32.0-36.0); Monocytes # (auto) 0.9 10 ^3/uL (0-1.3); Monocytes % (auto) 14.3 % (0.0-12.0); Neutrophils % (auto) 69.2 % (37.0-80.0); Red Blood Cells 6.03 10^6/uL (4.5-5.90)
[2020-06-01 18:19] LABS: INR 1.18 (0.9-1.15); Partial Thromboplastin Time 40.4 sec (23.0-31.2)
[2020-06-01 18:28] LABS: Calcium 8.1 mg/dL (8.5-10.1); Chloride 101 mmol/L (98-107); Potassium 4.1 mmol/L (3.5-5.1); Sodium 132 mmol/L (136-145)
[2020-06-01 18:36] LABS: Alanine Aminotransferase 32 U/L (16-61); Alkaline Phosphatase 128 U/L (45-117); Anion Gap 7 (5-15); Aspartate Aminotransferase 35 U/L (15-37); BUN/Creatinine Ratio 17.6; Blood Urea Nitrogen 22 mg/dL (7-18); Carbon Dioxide 24 mmol/L (21-32); GFR African American 71 mL/min; GFR Non-African American 59 mL/min; Glucose 124 mg/dL (74-106); Magnesium 2.2 mg/dL (1.6-2.6); Total Protein 7.4 g/dL (6.4-8.2)
[2020-06-01] MEDS ORDERED: DOXYCYCLINE 100MG/250ML 250 ML IV SCH (20:15)
[2020-06-01] MEDS ORDERED: MORPHINE SULFATE INJECTION 2 MG/ML SYRG IV PRN ×2 (20:15)
[2020-06-01] MEDS ORDERED: AZITHROMYCIN 500MG/ 250ML 250 ML IV ONE (20:15)
[2020-06-01] MEDS ORDERED: LORazepam 0.5 MG TAB PO PRN (20:15)
[2020-06-01] MEDS ORDERED: hydrALAZINE HCL 20 MG/ML VL IV PRN (20:15)
[2020-06-01] MEDS ORDERED: NITROGLYCERIN 0.4 MG SL TAB SL PRN (20:15)
[2020-06-01] MEDS ORDERED: ACETAMINOPHEN 500 MG TAB PO PRN (20:15)
[2020-06-01] MEDS ORDERED: ONDANSETRON HCL 4 MG/2 ML VIAL IV PRN (20:15)
[2020-06-01] MEDS: SODIUM CHLORIDE 0.9% 1,000 ML IV SCH (21:41)
[2020-06-01] MEDS: DOXYCYCLINE 100MG/250ML 250 ML IV SCH (22:00)
[2020-06-01] MEDS: MONTELUKAST SODIUM 10 MG TAB PO SCH (22:00)
[2020-06-01] MEDS: metFORMIN HYDROCHLORIDE 500 MG TAB PO SCH (22:00)
[2020-06-01] MEDS: METOPROLOL TARTRATE 25 MG TAB PO SCH (22:00)
[2020-06-01] MEDS: methylPREDNISolone SOD SUCC 125 MG/2 ML VL IV SCH (22:00)
[2020-06-01] MEDS: BUDESONIDE (INHALATION) 180 MCG IH IN SCH (22:00)
[2020-06-02] MEDS: ALBUTEROL SULF HFA 90MCG INH 200DOSE IN PRN ×2 (06:41→18:40)
[2020-06-02] MEDS: BUDESONIDE (INHALATION) 180 MCG IH IN SCH ×2 (06:41→18:40)
[2020-06-02] MEDS: methylPREDNISolone SOD SUCC 125 MG/2 ML VL IV SCH ×2 (07:13→13:55)
[2020-06-02] MEDS: DOXYCYCLINE 100MG/250ML 250 ML IV SCH ×2 (09:41→21:44)
[2020-06-02] MEDS: ZINC SULFATE 220mg CAP or TAB PO SCH (09:54)
[2020-06-02] MEDS: DIGOXIN 0.125 MG TAB PO SCH (09:54)
[2020-06-02] MEDS: PANTOPRAZOLE 40 MG TAB PO SCH (09:55)
[2020-06-02] MEDS: CHOLECALCIFEROL (VITD3) 2,000 UNIT CAP/TAB PO SCH (09:55)
[2020-06-02] MEDS: ASCORBIC ACID 1,000 MG TAB PO SCH (09:55)
[2020-06-02] MEDS: METOPROLOL TARTRATE 25 MG TAB PO SCH ×2 (09:56→21:41)
[2020-06-02] MEDS: LISINOPRIL 5 MG TAB PO SCH (09:57)
[2020-06-02] MEDS: metFORMIN HYDROCHLORIDE 500 MG TAB PO SCH ×2 (10:45→21:44)
[2020-06-02] MEDS: SODIUM CHLORIDE 0.9% 1,000 ML IV SCH (10:45)
[2020-06-02 10:56] LABS: Potassium 4.3 mmol/L (3.5-5.1)
[2020-06-02 11:08] LABS: Basophils # (auto) 0 10 ^3/uL (0-0.2); Eosinophils # (auto) 0 10 ^3/uL (0-0.8); Hemoglobin 12.7 g/dL (13.5-17.5); Lymphocytes # (auto) 0.4 10 ^3/uL (0.4-5.4); Mean Corpuscular Hgb Conc. 32.9 g/dL (32.0-36.0); Monocytes # (auto) 0.2 10 ^3/uL (0-1.3); Nucleated Red Blood Cells % 0.1 %
[2020-06-02 11:10] LABS: Basophils % (auto) 0.3 % (0.0-2.0); Eosinophils % (auto) 0.2 % (0.0-7.0); Hematocrit 38.7 % (41.0-53.0); Lymphocytes % (auto) 7.3 % (10.0-50.0); Mean Corpuscular Hemoglobin 21.9 pg (28.0-32.0); Mean Corpuscular Volume 66.5 fL (80.0-100.0); Monocytes % (auto) 4.5 % (0.0-12.0); Neutrophils # (auto) 4.7 10 ^3/uL (1.6-8.6); Neutrophils % (auto) 87.7 % (37.0-80.0); Red Blood Cells 5.82 10^6/uL (4.5-5.90); Red Cell Distribution Width 21.3 % (11.8-14.3); White Blood Cell 5.4 10^3/uL (4.4-10.8)
[2020-06-02 11:13] LABS: Albumin 2.7 g/dL (3.4-5.0); BUN/Creatinine Ratio 24.7; Bilirubin, Total 1.1 mg/dL (0.2-1.0); CRP High Sensitivity 8.98 mg/dL (< 0.3); Magnesium 2.3 mg/dL (1.6-2.6); Total Protein 6.6 g/dL (6.4-8.2)
[2020-06-02] MEDS: DOCUSATE CALCIUM 240 MG CAP PO PRN (11:38)
[2020-06-02] MEDS ORDERED: DEXTROSE (50%) 50ML SYRG IV PRN (13:00)
[2020-06-02] MEDS: ACCU-CHEK COMFORT CURVE STRIP VI SCH ×2 (17:02→21:37)
[2020-06-02] MEDS: InsuLIN REG 1unit/0.01ml Soln (100units/ml) SC SCH ×2 (17:18→21:42)
[2020-06-02] MEDS: TAMSULOSIN HYDROCHLORIDE 0.4 MG CAP PO SCH (17:40)
[2020-06-02] MEDS: RIVAROXABAN 20 MG TAB PO SCH (17:40)
[2020-06-02] MEDS ORDERED: REMDESIVIR PER PHARMACY 0 ML IV SCH (18:45)
[2020-06-02 20:18] VITALS: BP 132/71
[2020-06-02] MEDS ORDERED: REMDESIVIR 200 MG in NS 210ml LOADING DOSE ADULT IV ONE (20:30)
[2020-06-02] MEDS: MONTELUKAST SODIUM 10 MG TAB PO SCH (21:43)
[2020-06-02 23:57] VITALS: BP 129/69
[2020-06-03 00:15] VITALS: BP 127/72
[2020-06-03 01:30] VITALS: BP 118/71
[2020-06-03 01:52] LABS: Urine WBC None Seen /hpf (0 - 3)
[2020-06-03 02:35] LABS: Urine Bacteria NONE SEEN /hpf (None Seen); Urine Blood 1+ /uL (Negative); Urine Specific Gravity 1.008 (1.001-1.035)
[2020-06-03] MEDS: ACCU-CHEK COMFORT CURVE STRIP VI SCH ×4 (06:27→21:46)
[2020-06-03] MEDS: InsuLIN REG 1unit/0.01ml Soln (100units/ml) SC SCH ×4 (06:32→21:47)
[2020-06-03 08:00] VITALS: BP 115/66
[2020-06-03 08:17] LABS: INR 1.21 (0.9-1.15); Partial Thromboplastin Time 39.9 sec (23.0-31.2)
[2020-06-03 08:31] LABS: Albumin 2.6 g/dL (3.4-5.0); BUN/Creatinine Ratio 26.7; Calcium 8.2 mg/dL (8.5-10.1)
[2020-06-03 08:33] LABS: Bilirubin, Total 0.6 mg/dL (0.2-1.0); Total Protein 6.5 g/dL (6.4-8.2)
[2020-06-03 09:18] LABS: Basophils # (auto) 0 10 ^3/uL (0-0.2); Basophils % (auto) 0.1 % (0.0-2.0); Eosinophils # (auto) 0 10 ^3/uL (0-0.8); Lymphocytes # (auto) 0.6 10 ^3/uL (0.4-5.4); Monocytes # (auto) 0.6 10 ^3/uL (0-1.3); Monocytes % (auto) 7.5 % (0.0-12.0)
[2020-06-03 09:20] LABS: Hematocrit 39.5 % (41.0-53.0); Lymphocytes % (auto) 7.7 % (10.0-50.0); Mean Corpuscular Hemoglobin 22.1 pg (28.0-32.0); Mean Corpuscular Hgb Conc. 32.8 g/dL (32.0-36.0); Mean Corpuscular Volume 67.3 fL (80.0-100.0); Neutrophils # (auto) 6.4 10 ^3/uL (1.6-8.6); Neutrophils % (auto) 84.7 % (37.0-80.0); Nucleated Red Blood Cells % 0.1 %; Red Blood Cells 5.87 10^6/uL (4.5-5.90); White Blood Cell 7.6 10^3/uL (4.4-10.8)
[2020-06-03 09:22] LABS: Red Cell Distribution Width 22.3 % (11.8-14.3)
[2020-06-03] MEDS: BUDESONIDE (INHALATION) 180 MCG IH IN SCH ×2 (10:00→20:22)
[2020-06-03] MEDS: ZINC SULFATE 220mg CAP or TAB PO SCH (11:00)
[2020-06-03] MEDS: DOXYCYCLINE 100MG/250ML 250 ML IV SCH ×2 (11:00→21:03)
[2020-06-03] MEDS: DexAMETHasone SOD PHOS 10MG/1ML VIAL INJ IV SCH (11:00)
[2020-06-03] MEDS: metFORMIN HYDROCHLORIDE 500 MG TAB PO SCH ×2 (11:01→21:02)
[2020-06-03] MEDS: DIGOXIN 0.125 MG TAB PO SCH (11:01)
[2020-06-03] MEDS: METOPROLOL TARTRATE 25 MG TAB PO SCH ×2 (11:01→21:46)
[2020-06-03] MEDS: ASCORBIC ACID 1,000 MG TAB PO SCH (11:02)
[2020-06-03] MEDS: CHOLECALCIFEROL (VITD3) 2,000 UNIT CAP/TAB PO SCH (11:02)
[2020-06-03] MEDS: PANTOPRAZOLE 40 MG TAB PO SCH (11:02)
[2020-06-03] MEDS: LISINOPRIL 5 MG TAB PO SCH (11:02)
[2020-06-03] MEDS: REMDESIVIR 100mg 100 MG in SODIUM CHL 0.9% 230 ML IV SCH (15:07)
[2020-06-03 16:00] VITALS: BP 115/62
[2020-06-03] MEDS: TAMSULOSIN HYDROCHLORIDE 0.4 MG CAP PO SCH (17:28)
[2020-06-03] MEDS: RIVAROXABAN 20 MG TAB PO SCH (17:29)
[2020-06-03] MEDS: ALBUTEROL SULF HFA 90MCG INH 200DOSE IN PRN (20:23)
[2020-06-03] MEDS: MONTELUKAST SODIUM 10 MG TAB PO SCH (21:57)
[2020-06-04] VITALS: BP 142/79
[2020-06-04] MEDS: ACCU-CHEK COMFORT CURVE STRIP VI SCH ×4 (06:29→21:42)
[2020-06-04] MEDS: InsuLIN REG 1unit/0.01ml Soln (100units/ml) SC SCH ×4 (06:30→22:16)
[2020-06-04] MEDS: BUDESONIDE (INHALATION) 180 MCG IH IN SCH ×2 (07:30→19:36)
[2020-06-04 07:39] LABS: Potassium 4.3 mmol/L (3.5-5.1)
[2020-06-04 07:57] LABS: Albumin 2.5 g/dL (3.4-5.0); Bilirubin, Total 0.6 mg/dL (0.2-1.0); Calcium 8.1 mg/dL (8.5-10.1); Total Protein 6.3 g/dL (6.4-8.2)
[2020-06-04 08:00] VITALS: BP 117/57
[2020-06-04] MEDS: METOPROLOL TARTRATE 25 MG TAB PO SCH ×2 (10:00→21:42)
[2020-06-04] MEDS: LISINOPRIL 5 MG TAB PO SCH (10:00)
[2020-06-04] MEDS: ALBUTEROL SULF HFA 90MCG INH 200DOSE IN PRN ×2 (10:31→19:36)
[2020-06-04] MEDS: CHOLECALCIFEROL (VITD3) 2,000 UNIT CAP/TAB PO SCH (11:28)
[2020-06-04] MEDS: metFORMIN HYDROCHLORIDE 500 MG TAB PO SCH ×2 (11:30→21:26)
[2020-06-04] MEDS: ASCORBIC ACID 1,000 MG TAB PO SCH (11:30)
[2020-06-04] MEDS: PANTOPRAZOLE 40 MG TAB PO SCH (11:30)
[2020-06-04] MEDS: ZINC SULFATE 220mg CAP or TAB PO SCH (11:31)
[2020-06-04] MEDS: DOXYCYCLINE 100MG/250ML 250 ML IV SCH ×2 (11:32→21:26)
[2020-06-04] MEDS: DexAMETHasone SOD PHOS 10MG/1ML VIAL INJ IV SCH (11:32)
[2020-06-04] MEDS: DIGOXIN 0.125 MG TAB PO SCH (11:40)
[2020-06-04] MEDS ORDERED: POLYETHYLENE GLYCOL 17 GM PWDR PO ONE ×2 (13:00)
[2020-06-04] MEDS: REMDESIVIR 100mg 100 MG in SODIUM CHL 0.9% 230 ML IV SCH (15:37)
[2020-06-04 15:40] VITALS: BP 129/59
[2020-06-04] MEDS: TAMSULOSIN HYDROCHLORIDE 0.4 MG CAP PO SCH (17:38)
[2020-06-04] MEDS: RIVAROXABAN 20 MG TAB PO SCH (17:38)
[2020-06-04] MEDS: MONTELUKAST SODIUM 10 MG TAB PO SCH (21:28)
[2020-06-05] VITALS: BP 108/59
[2020-06-05] MEDS: ACCU-CHEK COMFORT CURVE STRIP VI SCH ×4 (06:26→22:10)
[2020-06-05] MEDS: InsuLIN REG 1unit/0.01ml Soln (100units/ml) SC SCH ×4 (06:27→22:13)
[2020-06-05 07:11] LABS: Potassium 4.4 mmol/L (3.5-5.1)
[2020-06-05 07:20] LABS: Albumin 2.5 g/dL (3.4-5.0); Bilirubin, Total 0.7 mg/dL (0.2-1.0); Calcium 8.1 mg/dL (8.5-10.1); Total Protein 5.9 g/dL (6.4-8.2)
[2020-06-05] MEDS: ALBUTEROL SULF HFA 90MCG INH 200DOSE IN PRN ×2 (07:20→20:46)
[2020-06-05] MEDS: BUDESONIDE (INHALATION) 180 MCG IH IN SCH ×2 (07:20→20:46)
[2020-06-05 08:00] VITALS: BP 126/69
[2020-06-05] MEDS: CHOLECALCIFEROL (VITD3) 2,000 UNIT CAP/TAB PO SCH (09:53)
[2020-06-05] MEDS: DOXYCYCLINE 100MG/250ML 250 ML IV SCH ×2 (09:53→22:10)
[2020-06-05] MEDS: PANTOPRAZOLE 40 MG TAB PO SCH (09:54)
[2020-06-05] MEDS: ZINC SULFATE 220mg CAP or TAB PO SCH (09:54)
[2020-06-05] MEDS: METOPROLOL TARTRATE 25 MG TAB PO SCH ×2 (09:54→22:11)
[2020-06-05] MEDS: LISINOPRIL 5 MG TAB PO SCH (09:54)
[2020-06-05] MEDS: metFORMIN HYDROCHLORIDE 500 MG TAB PO SCH ×2 (09:54→22:10)
[2020-06-05] MEDS: DIGOXIN 0.125 MG TAB PO SCH (09:55)
[2020-06-05] MEDS: DexAMETHasone SOD PHOS 10MG/1ML VIAL INJ IV SCH (09:55)
[2020-06-05] MEDS: ASCORBIC ACID 1,000 MG TAB PO SCH (09:55)
[2020-06-05] MEDS: DOCUSATE CALCIUM 240 MG CAP PO PRN (15:08)
[2020-06-05] MEDS: REMDESIVIR 100mg 100 MG in SODIUM CHL 0.9% 230 ML IV SCH (15:09)
[2020-06-05 15:50] VITALS: BP 132/74
[2020-06-05] MEDS: RIVAROXABAN 20 MG TAB PO SCH (17:00)
[2020-06-05] MEDS: TAMSULOSIN HYDROCHLORIDE 0.4 MG CAP PO SCH (17:01)
[2020-06-05] MEDS: MONTELUKAST SODIUM 10 MG TAB PO SCH (22:11)
[2020-06-05 23:42] VITALS: BP 138/84
[2020-06-06] MEDS: ACCU-CHEK COMFORT CURVE STRIP VI SCH ×4 (06:14→21:53)
[2020-06-06] MEDS: InsuLIN REG 1unit/0.01ml Soln (100units/ml) SC SCH ×4 (06:20→21:39)
[2020-06-06] MEDS: BUDESONIDE (INHALATION) 180 MCG IH IN SCH ×2 (06:48→21:40)
[2020-06-06] MEDS: ALBUTEROL SULF HFA 90MCG INH 200DOSE IN PRN ×2 (06:49→21:40)
[2020-06-06 07:04] LABS: Potassium 4.7 mmol/L (3.5-5.1)
[2020-06-06 07:08] LABS: Albumin 2.5 g/dL (3.4-5.0); BUN/Creatinine Ratio 28.4; Calcium 8.4 mg/dL (8.5-10.1)
[2020-06-06 07:12] LABS: Bilirubin, Total 0.9 mg/dL (0.2-1.0); Total Protein 5.7 g/dL (6.4-8.2)
[2020-06-06 08:00] VITALS: BP 132/70
[2020-06-06] MEDS: ZINC SULFATE 220mg CAP or TAB PO SCH (09:00)
[2020-06-06] MEDS: DOXYCYCLINE 100MG/250ML 250 ML IV SCH ×2 (09:00→21:49)
[2020-06-06] MEDS: DexAMETHasone SOD PHOS 10MG/1ML VIAL INJ IV SCH (09:00)
[2020-06-06] MEDS: DIGOXIN 0.125 MG TAB PO SCH (09:01)
[2020-06-06] MEDS: metFORMIN HYDROCHLORIDE 500 MG TAB PO SCH ×2 (09:01→21:49)
[2020-06-06] MEDS: ASCORBIC ACID 1,000 MG TAB PO SCH (09:02)
[2020-06-06] MEDS: METOPROLOL TARTRATE 25 MG TAB PO SCH ×2 (09:02→21:52)
[2020-06-06] MEDS: PANTOPRAZOLE 40 MG TAB PO SCH (09:02)
[2020-06-06] MEDS: CHOLECALCIFEROL (VITD3) 2,000 UNIT CAP/TAB PO SCH (09:02)
[2020-06-06] MEDS: LISINOPRIL 5 MG TAB PO SCH (09:03)
[2020-06-06] MEDS ORDERED: FUROSEMIDE 20 MG/2 ML VIAL IV ONE (13:30)
[2020-06-06 16:00] VITALS: BP 112/75
[2020-06-06] MEDS: REMDESIVIR 100mg 100 MG in SODIUM CHL 0.9% 230 ML IV SCH (16:02)
[2020-06-06] MEDS: TAMSULOSIN HYDROCHLORIDE 0.4 MG CAP PO SCH (17:08)
[2020-06-06] MEDS: RIVAROXABAN 20 MG TAB PO SCH (17:09)
[2020-06-06] MEDS: MONTELUKAST SODIUM 10 MG TAB PO SCH (21:50)
[2020-06-07] VITALS: BP 137/62
[2020-06-07] MEDS: InsuLIN REG 1unit/0.01ml Soln (100units/ml) SC SCH ×2 (06:38→12:07)
[2020-06-07] MEDS: ACCU-CHEK COMFORT CURVE STRIP VI SCH ×2 (06:38→12:05)
[2020-06-07] MEDS: ALBUTEROL SULF HFA 90MCG INH 200DOSE IN PRN (07:05)
[2020-06-07] MEDS: BUDESONIDE (INHALATION) 180 MCG IH IN SCH (07:05)
[2020-06-07 08:00] VITALS: BP 124/71
[2020-06-07] MEDS ORDERED: fentaNYL CITRATE 100 MCG/2 ML VL ONE (09:07)
[2020-06-07] MEDS ORDERED: MIDAZOLAM HCL 2MG/2ML 2ml VIAL (1mg/ml) ONE (09:07)
[2020-06-07] MEDS ORDERED: ANGIOMAX 250 MG VIAL IV ONE (09:07)
[2020-06-07] MEDS ORDERED: SODIUM CHL 0.9% 50 ML ONE (09:08)
[2020-06-07] MEDS: DexAMETHasone SOD PHOS 10MG/1ML VIAL INJ IV SCH (09:56)
[2020-06-07] MEDS: metFORMIN HYDROCHLORIDE 500 MG TAB PO SCH (09:56)
[2020-06-07] MEDS: ZINC SULFATE 220mg CAP or TAB PO SCH (09:56)
[2020-06-07] MEDS: DOXYCYCLINE 100MG/250ML 250 ML IV SCH (09:56)
[2020-06-07] MEDS: PANTOPRAZOLE 40 MG TAB PO SCH (09:59)
[2020-06-07] MEDS: METOPROLOL TARTRATE 25 MG TAB PO SCH (09:59)
[2020-06-07] MEDS: CHOLECALCIFEROL (VITD3) 2,000 UNIT CAP/TAB PO SCH (10:00)
[2020-06-07] MEDS: LISINOPRIL 5 MG TAB PO SCH (10:00)
[2020-06-07] MEDS: ASCORBIC ACID 1,000 MG TAB PO SCH (10:00)
[2020-06-07] MEDS: DIGOXIN 0.125 MG TAB PO SCH (10:14)
[2020-06-07] MEDS: DOCUSATE CALCIUM 240 MG CAP PO PRN (15:17)
[2020-06-07 15:33] VITALS: BP 124/71
[2020-06-07 15:55] VITALS: BP 120/69
== END 2020-06-07 16:45 | disposition home or self-care (01) | DRG 177 ==
LOC: ER 17:13 → OVERFLOW 17:14 → TELE-EAST 06-02 19:59
PROVIDERS: ADMIT Family Medicine; ATTEND Internal Medicine
PROC: XW033E5 Introduction of Remdesivir Anti-infective into Peripheral Vein, Percutaneous Approach, New Technology Group 5 (ICD-10-PCS; principal; 2020-06-02)
DX: U07.1 COVID-19 (principal); J96.01 Acute respiratory failure with hypoxia; J12.82 Pneumonia due to coronavirus disease 2019; E87.1 Hypo-osmolality and hyponatremia; J44.0 Chronic obstructive pulmonary disease with (acute) lower respiratory infection; D68.59 Other primary thrombophilia; I48.91 Unspecified atrial fibrillation; I11.0 Hypertensive heart disease with heart failure; E86.0 Dehydration; E11.65 Type 2 diabetes mellitus with hyperglycemia; I50.9 Heart failure, unspecified; D64.9 Anemia, unspecified; N40.0 Benign prostatic hyperplasia without lower urinary tract symptoms; Z82.49 Family history of ischemic heart disease and other diseases of the circulatory system; Z95.0 Presence of cardiac pacemaker
CPT/HCPCS: 36415; 36600; 71045; 80053; 81001; 82306; 82728; 82805; 82962; 83036; 83605; 83615; 83735; 83880; 84443; 84484; 85025; 85379; 85610; 85730; 86141; 87040; 87426; 87804; 93005; 94640; 96361; 96365; 96367; 96375; 97163; G0378; J1100; J1815; J2250; J2405; J3490

== ENCOUNTER → 2020-06-01 | Outpatient (CLI) | payer OTHER | END | disposition home or self-care (01) | LOC: LAB 16:33 | PROVIDERS: ATTEND Nurse Practitioner Family | DX: U07.1 COVID-19 (principal) | CPT/HCPCS: C9803; U0003 ==

== ENCOUNTER 2020-07-27 20:00 | Emergency (ER) | payer OTHER ==
[~2020-07-27] VITALS: Ht 172.7 cm; Wt 99.8 kg
[~2020-07-27 20:00] MED LIST changes: -LORA-154 PO; +LORA-483 PO; +MONT-8 PO; -MONT10TA34 PO
[2020-07-27 22:14] LABS: Basophils # (auto) 0 10 ^3/uL (0-0.2); Eosinophils # (auto) 0.2 10 ^3/uL (0-0.8); Nucleated Red Blood Cells % 0.1 %
[2020-07-27 22:16] LABS: Basophils % (auto) 0.5 % (0.0-2.0); Eosinophils % (auto) 2.3 % (0.0-7.0); Hematocrit 36.9 % (41.0-53.0); Hemoglobin 11.9 g/dL (13.5-17.5); Lymphocytes # (auto) 1.9 10 ^3/uL (0.4-5.4); Lymphocytes % (auto) 25.9 % (10.0-50.0); Mean Corpuscular Hemoglobin 23.3 pg (28.0-32.0); Mean Corpuscular Hgb Conc. 32.2 g/dL (32.0-36.0); Mean Corpuscular Volume 72.4 fL (80.0-100.0); Monocytes # (auto) 0.8 10 ^3/uL (0-1.3); Monocytes % (auto) 11.3 % (0.0-12.0); Neutrophils # (auto) 4.5 10 ^3/uL (1.6-8.6); White Blood Cell 7.4 10^3/uL (4.4-10.8)
[2020-07-27 22:17] LABS: Red Cell Distribution Width 23.4 % (11.8-14.3)
[2020-07-27 22:26] LABS: INR 1.07 (0.9-1.15); Partial Thromboplastin Time 32.1 sec (23.0-31.2)
[2020-07-27 22:29] LABS: Anion Gap 3 (5-15); Blood Urea Nitrogen 19 mg/dL (7-18); Calcium 8.8 mg/dL (8.5-10.1); Carbon Dioxide 30 mmol/L (21-32); Chloride 107 mmol/L (98-107); Glucose 132 mg/dL (74-106); Sodium 140 mmol/L (136-145)
[2020-07-27 22:35] LABS: Alanine Aminotransferase 20 U/L (16-61); Alkaline Phosphatase 133 U/L (45-117); Aspartate Aminotransferase 19 U/L (15-37); BUN/Creatinine Ratio 20.2; Bilirubin, Total 0.6 mg/dL (0.2-1.0); GFR African American 99 mL/min; GFR Non-African American 81 mL/min; Total Protein 6.8 g/dL (6.4-8.2)
[2020-07-27] MEDS ORDERED: IOPAMIDOL 76 % (ISOVUE-370) 100ML BTL IV ONE (23:21)
[2020-07-28 03:00] VITALS: BP 132/76
== END 2020-07-28 03:16 | disposition home or self-care (01) ==
LOC: ER 20:00 → MERGE 20:00 → EDBD 20:00 → ER 07-28 03:16
DX: R79.89 Other specified abnormal findings of blood chemistry (principal); I11.0 Hypertensive heart disease with heart failure; I50.9 Heart failure, unspecified; Z20.822 Contact with and (suspected) exposure to COVID-19; Z86.73 Personal history of transient ischemic attack (TIA), and cerebral infarction without residual deficits
CPT/HCPCS: 36415; 71275; 80053; 83880; 84484; 85025; 85379; 85610; 85730; 93005; 99285; Q9967

== ENCOUNTER → 2020-07-27 | Outpatient (CLI) | payer OTHER ==
[~2020-07-27] MED LIST changes: +LORA-154 PO; -LORA-483 PO; +MONT10TA34 PO; -MONT10TA42 PO
== END | disposition home or self-care (01) ==
LOC: LAB 16:07
PROVIDERS: ATTEND Internal Medicine
DX: R06.00 Dyspnea, unspecified (principal)
CPT/HCPCS: 36415; 85379

== ENCOUNTER → 2020-08-10 | Outpatient (CLI) | payer OTHER ==
[~2020-08-10] MED LIST changes: +LORA-154 PO; -LORA-483 PO; -MONT-8 PO; +MONT10TA34 PO
[2020-08-10 12:17] LABS: Urine Blood TRACE /uL (Negative); Urine Specific Gravity 1.013 (1.001-1.035)
[2020-08-10 12:21] LABS: Basophils # (auto) 0 10 ^3/uL (0-0.2); Eosinophils # (auto) 0.2 10 ^3/uL (0-0.8); Eosinophils % (auto) 2.4 % (0.0-7.0); Hemoglobin 12.7 g/dL (13.5-17.5); Nucleated Red Blood Cells % 0.1 %
[2020-08-10 12:23] LABS: Basophils % (auto) 0.6 % (0.0-2.0); Hematocrit 39.8 % (41.0-53.0); Lymphocytes # (auto) 2.6 10 ^3/uL (0.4-5.4); Lymphocytes % (auto) 35.7 % (10.0-50.0); Mean Corpuscular Hemoglobin 23.3 pg (28.0-32.0); Mean Corpuscular Hgb Conc. 31.9 g/dL (32.0-36.0); Monocytes # (auto) 0.7 10 ^3/uL (0-1.3); Monocytes % (auto) 10.2 % (0.0-12.0); Neutrophils # (auto) 3.8 10 ^3/uL (1.6-8.6); Neutrophils % (auto) 51.1 % (37.0-80.0); Platelet Count (auto) 229 10^3/uL (140-450); Red Blood Cells 5.45 10^6/uL (4.5-5.90); White Blood Cell 7.4 10^3/uL (4.4-10.8)
[2020-08-10 12:41] LABS: Free T4 (Free Thyroxine) 1.16 ng/dL (0.89-1.76)
[2020-08-10 12:52] LABS: Calcium 8.9 mg/dL (8.5-10.1); Potassium 4.2 mmol/L (3.5-5.1)
[2020-08-10 12:59] LABS: Albumin 3.3 g/dL (3.4-5.0); BUN/Creatinine Ratio 19.4; Bilirubin, Total 0.7 mg/dL (0.2-1.0); Total Protein 7.3 g/dL (6.4-8.2)
== END | disposition home or self-care (01) ==
LOC: Rad HDHVI 08:12
PROVIDERS: ATTEND Internal Medicine Cardiovascular Disease
DX: C61 Malignant neoplasm of prostate (principal); D51.3 Other dietary vitamin B12 deficiency anemia; I10 Essential (primary) hypertension; E11.9 Type 2 diabetes mellitus without complications; E55.9 Vitamin D deficiency, unspecified; D64.9 Anemia, unspecified; R00.2 Palpitations; R53.1 Weakness; R30.0 Dysuria
CPT/HCPCS: 36415; 80053; 80061; 81003; 82306; 82607; 83036; 84153; 84403; 84439; 84443; 85025; 93306

== ENCOUNTER → 2020-09-07 | Outpatient (CLI) | payer OTHER ==
[2020-09-07 09:03] LABS: BUN/Creatinine Ratio 29.7
== END | disposition home or self-care (01) ==
LOC: LAB 08:03
PROVIDERS: ATTEND Internal Medicine
DX: I11.0 Hypertensive heart disease with heart failure (principal); I50.9 Heart failure, unspecified; E11.9 Type 2 diabetes mellitus without complications
CPT/HCPCS: 36415; 80048; 82043; 83880

== ENCOUNTER → 2020-09-20 | Outpatient (CLI) | payer OTHER ==
[~2020-09-20] MED LIST changes: -LORA-154 PO; +LORA-483 PO; -MONT10TA34 PO; +MONT10TA42 PO
[2020-09-20 15:33] LABS: Albumin 3.2 g/dL (3.4-5.0); BUN/Creatinine Ratio 28.4; Calcium 8.8 mg/dL (8.5-10.1); Potassium 5.3 mmol/L (3.5-5.1)
[2020-09-20 15:36] LABS: Bilirubin, Total 0.5 mg/dL (0.2-1.0)
== END | disposition home or self-care (01) ==
LOC: LAB 14:28
PROVIDERS: ATTEND Internal Medicine
DX: I10 Essential (primary) hypertension (principal)
CPT/HCPCS: 36415; 80053

== ENCOUNTER → 2020-10-11 | Outpatient (CLI) | payer OTHER ==
[2020-10-11 14:42] LABS: BUN/Creatinine Ratio 23.2; Potassium 5.3 mmol/L (3.5-5.1)
== END | disposition home or self-care (01) ==
LOC: LAB 14:04
PROVIDERS: ATTEND Internal Medicine
DX: E11.9 Type 2 diabetes mellitus without complications (principal); N28.89 Other specified disorders of kidney and ureter
CPT/HCPCS: 36415; 80048; 82043

== ENCOUNTER → 2020-10-30 | Outpatient (CLI) | payer OTHER, MEDICARE ==
[2020-10-30 17:15] LABS: Urine Bacteria NONE SEEN /hpf (None Seen); Urine Blood TRACE /uL (Negative); Urine Specific Gravity 1.017 (1.001-1.035); Urine WBC 1 /hpf (0 - 3)
[2020-10-30 17:22] LABS: Potassium 4.8 mmol/L (3.5-5.1)
[2020-10-30 17:23] LABS: BUN/Creatinine Ratio 21.7
== END | disposition home or self-care (01) ==
LOC: LAB 16:51
PROVIDERS: ATTEND Internal Medicine
DX: E11.9 Type 2 diabetes mellitus without complications (principal)
CPT/HCPCS: 36415; 80048; 81001; 83036

== ENCOUNTER → 2020-11-21 | Outpatient (CLI) | payer OTHER, MEDICARE ==
[2020-11-21 15:24] LABS: Urine Blood TRACE /uL (Negative)
== END | disposition home or self-care (01) ==
LOC: CHF HDHVI 14:42
PROVIDERS: ATTEND Internal Medicine
DX: N39.0 Urinary tract infection, site not specified (principal)
CPT/HCPCS: 81003; 87086

== ENCOUNTER → 2020-12-14 | Outpatient (CLI) | payer OTHER, MEDICARE ==
[2020-12-14 14:32] LABS: BUN/Creatinine Ratio 15.5; Calcium 8.6 mg/dL (8.5-10.1); Potassium 4.1 mmol/L (3.5-5.1)
== END | disposition home or self-care (01) ==
LOC: LAB 13:39
PROVIDERS: ATTEND Internal Medicine
DX: E11.9 Type 2 diabetes mellitus without complications (principal); I50.9 Heart failure, unspecified
CPT/HCPCS: 36415; 80048; 83880

== ENCOUNTER → 2020-12-26 | Outpatient (CLI) | payer MEDICARE | END | disposition home or self-care (01) | LOC: LAB 14:37 | PROVIDERS: ATTEND Internal Medicine | DX: N39.0 Urinary tract infection, site not specified (principal) | CPT/HCPCS: 87086 ==

== ENCOUNTER → 2021-04-15 | Outpatient (CLI) | payer OTHER, MEDICARE ==
[~2021-04-15] MED LIST changes: +MONT-8 PO; -MONT10TA42 PO
[2021-04-15 16:08] LABS: Calcium 8.8 mg/dL (8.5-10.1); Potassium 5.3 mmol/L (3.5-5.1)
[2021-04-15 16:10] LABS: BUN/Creatinine Ratio 18.9
== END | disposition home or self-care (01) ==
LOC: LAB 15:00
PROVIDERS: ATTEND Internal Medicine
DX: E11.9 Type 2 diabetes mellitus without complications (principal)
CPT/HCPCS: 36415; 80048

== ENCOUNTER 2022-08-22 07:36 | Inpatient (IN) | payer OTHER, MEDICAID ==
[~2022-08-22] VITALS: Ht 172.7 cm; Wt 98.0 kg
[2022-08-22] VITALS (22 sets, daily range): BP systolic 88–121; BP diastolic 47–71
[2022-08-22 08:44] LABS: Basophils # (auto) 0 10 ^3/uL (0-0.2); Basophils % (auto) 0.3 % (0.0-2.0); Eosinophils # (auto) 0.1 10 ^3/uL (0-0.8); Eosinophils % (auto) 0.5 % (0.0-7.0); Hematocrit 37.2 % (41.0-53.0); Hemoglobin 12.4 g/dL (13.5-17.5); Lymphocytes % (auto) 17.3 % (10.0-50.0); Mean Corpuscular Hemoglobin 30.2 pg (28.0-32.0); Mean Corpuscular Hgb Conc. 33.3 g/dL (32.0-36.0); Mean Corpuscular Volume 90.7 fL (80.0-100.0); Monocytes % (auto) 8.7 % (0.0-12.0); Neutrophils # (auto) 8.6 10 ^3/uL (1.6-8.6); Neutrophils % (auto) 73.2 % (37.0-80.0); Red Cell Distribution Width 15.3 % (11.8-14.3); White Blood Cell 11.7 10^3/uL (4.4-10.8)
[2022-08-22 08:53] LABS: Albumin 2.7 g/dL (3.4-5.0); Calcium 8.1 mg/dL (8.5-10.1)
[2022-08-22 08:56] LABS: Bilirubin, Total 0.9 mg/dL (0.2-1.0); Total Protein 4.9 g/dL (6.4-8.2)
[2022-08-22 08:57] LABS: Potassium 5.7 mmol/L (3.5-5.1)
[2022-08-22 09:06] LABS: BUN/Creatinine Ratio 43.8 (10.0-20.0)
[2022-08-22] MEDS ORDERED: SODIUM ZIRCONIUM CYCL 10 GM PAK PO ONE (10:00)
[2022-08-22] MEDS ORDERED: PANTOPRAZOLE 40mg/50ML NS AE 50 ML IV ONE (10:00)
[2022-08-22] MEDS ORDERED: CALCIUM GLUC 1,000mg/50ml-NS 50 ML IV ONE (10:00)
[2022-08-22] MEDS ORDERED: OCTREOTIDE ACETATE 50 MCG in SODIUM CHL 0.9% 50 ML IV ONE (10:00)
[2022-08-22] MEDS ORDERED: PANTOPRAZOLE 40 MG/10 ML VIAL INJ IV ONE (10:00)
[2022-08-22] MEDS ORDERED: InsuLIN REG 1unit/0.01ml Soln (100units/ml) IV ONE ×2 (10:00→14:30)
[2022-08-22] MEDS ORDERED: DEXTROSE (50%) 50ML SYRG IV ONE ×2 (10:00→14:30)
[2022-08-22 10:26] LABS: Lactic Acid w/Reflex 3.3 mmol/L (0.4-2.0)
[2022-08-22 10:31] LABS: INR 1.41 (0.9-1.15); Partial Thromboplastin Time 29.5 sec (24.6-33.4)
[2022-08-22] MEDS ORDERED: PROTHROMBIN COMPLEX CONCENTRAT 2,000 UNIT in STERILE WATER 80 ML IV ONE (10:45)
[2022-08-22] MEDS: OCTREOTIDE ACETATE 500 MCG in SODIUM CHL 0.9% 99 ML IV SCH ×2 (11:40→21:55)
[2022-08-22] MEDS ORDERED: ONDANSETRON HCL 4 MG/2 ML VIAL IV PRN (12:00)
[2022-08-22] MEDS ORDERED: MORPHINE SULFATE INJ 2 MG/ml SYRG IV PRN (12:00)
[2022-08-22] MEDS ORDERED: DEXTROSE (50%) 50ML SYRG IV PRN (12:00)
[2022-08-22] MEDS: VASOPRESSIN 20 UNITS in SODIUM CHL 0.9% 99 ML IV SCH ×2 (12:15→21:56)
[2022-08-22] MEDS ORDERED: FUROSEMIDE 40 MG/4 ML VIAL IV ONE ×2 (12:30→14:30)
[2022-08-22] MEDS: PIPERACILLIN-TAZOB 3.375GM 100 ML IV SCH ×2 (13:00→21:42)
[2022-08-22 13:26] LABS: Hematocrit 38.4 % (41.0-53.0)
[2022-08-22] MEDS: ACCU-CHEK COMFORT CURVE STRIP VI SCH ×2 (13:27→19:15)
[2022-08-22] MEDS: InsuLIN REG 1unit/0.01ml Soln (100units/ml) SC SCH ×2 (13:29→20:00)
[2022-08-22] MEDS ORDERED: ALBUTEROL SULF 2.5 MG/0.5ML(0.5%) NEB SOLN NEB ONE (14:30)
[2022-08-22] MEDS ORDERED: SODIUM BICARBONATE 8.4% INJ 50ML SYRINGE IV ONE (14:30)
[2022-08-22] MEDS ORDERED: KETAMINE HCL 10 ML ONE (15:43)
[2022-08-22] MEDS ORDERED: MIDAZOLAM HCL 2MG/2ML 2ml VIAL (1mg/ml) ONE (15:43)
[2022-08-22] MEDS ORDERED: fentaNYL CITRATE 100 MCG/2 ML VL ONE (15:44)
[2022-08-22] MEDS ORDERED: GLYCOPYRROLATE 0.2 MG/ML 1ML VIAL ONE (15:44)
[2022-08-22] MEDS ORDERED: PROPOFOL 10 MG/ML 20 ML IV ONE (15:44)
[2022-08-22] MEDS ORDERED: ONDANSETRON HCL 4 MG/2 ML VIAL ONE (15:44)
[2022-08-22] MEDS: SUCRALFATE 1 GM/10 ML ORAL SUSP PO SCH ×2 (17:00→21:42)
[2022-08-22] MEDS ORDERED: ACCU-CHEK COMFORT CURVE STRIP VI ONE (17:15)
[2022-08-22 17:23] LABS: Urine Bacteria NONE SEEN /hpf (None Seen); Urine Blood 2+ /uL (Negative); Urine Specific Gravity 1.016 (1.001-1.035); Urine WBC 1 /hpf (0 - 3)
[2022-08-22 18:30] LABS: Hematocrit 37.9 % (41.0-53.0); Hemoglobin 12.4 g/dL (13.5-17.5)
[2022-08-22] MEDS: NOREPINEPHRINE 8 MG/250ML KIT 250 ML IV SCH (19:00)
[2022-08-22] MEDS: SODIUM CHLORIDE 0.9% 1,000 ML IV SCH ×2 (20:00→20:20)
[2022-08-22 22:18] LABS: Hematocrit 36.4 % (41.0-53.0); Hemoglobin 12.4 g/dL (13.5-17.5)
[2022-08-23] VITALS (95 sets, daily range): BP systolic 85–119; BP diastolic 37–73
[2022-08-23] MEDS: InsuLIN REG 1unit/0.01ml Soln (100units/ml) SC SCH ×5 (00:42→23:30)
[2022-08-23] MEDS: ACCU-CHEK COMFORT CURVE STRIP VI SCH ×5 (00:43→23:31)
[2022-08-23 02:10] LABS: Hematocrit 34.6 % (41.0-53.0); Hemoglobin 11.6 g/dL (13.5-17.5)
[2022-08-23 04:26] LABS: Basophils # (auto) 0 10 ^3/uL (0-0.2); Basophils % (auto) 0.4 % (0.0-2.0); Eosinophils # (auto) 0.1 10 ^3/uL (0-0.8); Eosinophils % (auto) 0.4 % (0.0-7.0); Hematocrit 33.1 % (41.0-53.0); Hemoglobin 11.3 g/dL (13.5-17.5); Lymphocytes # (auto) 2.1 10 ^3/uL (0.4-5.4); Lymphocytes % (auto) 15.7 % (10.0-50.0); Mean Corpuscular Hemoglobin 30.1 pg (28.0-32.0); Mean Corpuscular Hgb Conc. 34.1 g/dL (32.0-36.0); Mean Corpuscular Volume 88.4 fL (80.0-100.0); Monocytes # (auto) 1.2 10 ^3/uL (0-1.3); Monocytes % (auto) 8.9 % (0.0-12.0); Neutrophils # (auto) 9.9 10 ^3/uL (1.6-8.6); Neutrophils % (auto) 74.6 % (37.0-80.0); Nucleated Red Blood Cells % 0.1 %; Red Blood Cells 3.75 10^6/uL (4.5-5.90); Red Cell Distribution Width 16.2 % (11.8-14.3); White Blood Cell 13.2 10^3/uL (4.4-10.8)
[2022-08-23] MEDS: SODIUM CHLORIDE 0.9% 1,000 ML IV SCH ×3 (04:40→21:22)
[2022-08-23 04:46] LABS: Albumin 2.4 g/dL (3.4-5.0); Calcium 7.6 mg/dL (8.5-10.1); Potassium 4.5 mmol/L (3.5-5.1)
[2022-08-23 04:50] LABS: BUN/Creatinine Ratio 51.3 (10.0-20.0); Bilirubin, Total 0.8 mg/dL (0.2-1.0); Total Protein 4.8 g/dL (6.4-8.2)
[2022-08-23] MEDS: PIPERACILLIN-TAZOB 3.375GM 100 ML IV SCH ×3 (05:38→20:47)
[2022-08-23] MEDS: OCTREOTIDE ACETATE 500 MCG in SODIUM CHL 0.9% 99 ML IV SCH ×2 (06:00→16:00)
[2022-08-23] MEDS: SUCRALFATE 1 GM/10 ML ORAL SUSP PO SCH ×4 (06:40→21:22)
[2022-08-23] MEDS: NOREPINEPHRINE 8 MG/250ML KIT 250 ML IV SCH (07:21)
[2022-08-23] MEDS: VASOPRESSIN 20 UNITS in SODIUM CHL 0.9% 99 ML IV SCH ×3 (08:44→22:50)
[2022-08-23 10:42] LABS: Hematocrit 31.9 % (41.0-53.0); Hemoglobin 10.7 g/dL (13.5-17.5)
[2022-08-23] MEDS: MIDODRINE HCL 10 MG TAB PO SCH (16:48)
[2022-08-24] VITALS (73 sets, daily range): BP systolic 89–133; BP diastolic 45–81
[2022-08-24] MEDS: OCTREOTIDE ACETATE 500 MCG in SODIUM CHL 0.9% 99 ML IV SCH (02:05)
[2022-08-24 04:20] LABS: Basophils # (auto) 0 10 ^3/uL (0-0.2); Basophils % (auto) 0.4 % (0.0-2.0); Eosinophils # (auto) 0.2 10 ^3/uL (0-0.8); Eosinophils % (auto) 2.4 % (0.0-7.0); Hematocrit 30.5 % (41.0-53.0); Hemoglobin 10.1 g/dL (13.5-17.5); Lymphocytes # (auto) 1.9 10 ^3/uL (0.4-5.4); Lymphocytes % (auto) 21.5 % (10.0-50.0); Mean Corpuscular Hemoglobin 30.8 pg (28.0-32.0); Mean Corpuscular Hgb Conc. 33.3 g/dL (32.0-36.0); Mean Corpuscular Volume 92.6 fL (80.0-100.0); Monocytes # (auto) 0.8 10 ^3/uL (0-1.3); Monocytes % (auto) 8.7 % (0.0-12.0); Nucleated Red Blood Cells % 0.5 %; Red Blood Cells 3.29 10^6/uL (4.5-5.90); Red Cell Distribution Width 16.5 % (11.8-14.3)
[2022-08-24] MEDS: PIPERACILLIN-TAZOB 3.375GM 100 ML IV SCH ×3 (04:38→20:50)
[2022-08-24 04:40] LABS: BUN/Creatinine Ratio 43.8 (10.0-20.0); Calcium 7.8 mg/dL (8.5-10.1); Potassium 3.5 mmol/L (3.5-5.1)
[2022-08-24] MEDS: SODIUM CHLORIDE 0.9% 1,000 ML IV SCH ×3 (05:30→21:09)
[2022-08-24] MEDS: InsuLIN REG 1unit/0.01ml Soln (100units/ml) SC SCH ×3 (05:31→16:56)
[2022-08-24] MEDS: ACCU-CHEK COMFORT CURVE STRIP VI SCH ×3 (05:31→16:55)
[2022-08-24] MEDS: MIDODRINE HCL 10 MG TAB PO SCH ×3 (05:31→16:55)
[2022-08-24] MEDS: SUCRALFATE 1 GM/10 ML ORAL SUSP PO SCH ×4 (06:26→21:08)
[2022-08-24] MEDS: NOREPINEPHRINE 8 MG/250ML KIT 250 ML IV SCH (09:08)
[2022-08-24 10:18] LABS: Hematocrit 31.7 % (41.0-53.0); Hemoglobin 10.6 g/dL (13.5-17.5)
[2022-08-24] MEDS: VASOPRESSIN 20 UNITS in SODIUM CHL 0.9% 99 ML IV SCH (10:20)
[2022-08-24] MEDS ORDERED: PANTOPRAZOLE 40 MG/10 ML VIAL INJ IV ONE (11:30)
[2022-08-24] MEDS: PANTOPRAZOLE 40 MG/10 ML VIAL INJ IV SCH (21:08)
[2022-08-25] MEDS: ACCU-CHEK COMFORT CURVE STRIP VI SCH ×3 (00:24→12:13)
[2022-08-25] MEDS: InsuLIN REG 1unit/0.01ml Soln (100units/ml) SC SCH ×3 (00:32→12:13)
[2022-08-25 05:00] VITALS: BP 107/59
[2022-08-25] MEDS: PIPERACILLIN-TAZOB 3.375GM 100 ML IV SCH ×2 (05:16→12:53)
[2022-08-25] MEDS: MIDODRINE HCL 10 MG TAB PO SCH ×2 (05:16→12:11)
[2022-08-25 06:37] LABS: Basophils # (auto) 0 10 ^3/uL (0-0.2); Basophils % (auto) 0.4 % (0.0-2.0); Eosinophils # (auto) 0.2 10 ^3/uL (0-0.8); Hematocrit 30.7 % (41.0-53.0); Hemoglobin 10.6 g/dL (13.5-17.5); Lymphocytes # (auto) 2.7 10 ^3/uL (0.4-5.4); Lymphocytes % (auto) 32.2 % (10.0-50.0); Mean Corpuscular Hemoglobin 30.8 pg (28.0-32.0); Mean Corpuscular Hgb Conc. 34.5 g/dL (32.0-36.0); Mean Corpuscular Volume 89.2 fL (80.0-100.0); Monocytes # (auto) 0.8 10 ^3/uL (0-1.3); Monocytes % (auto) 9.2 % (0.0-12.0); Neutrophils # (auto) 4.7 10 ^3/uL (1.6-8.6); Neutrophils % (auto) 56.2 % (37.0-80.0); Nucleated Red Blood Cells % 0.3 %; Red Blood Cells 3.44 10^6/uL (4.5-5.90); Red Cell Distribution Width 15.8 % (11.8-14.3); White Blood Cell 8.3 10^3/uL (4.4-10.8)
[2022-08-25] MEDS: SODIUM CHLORIDE 0.9% 1,000 ML IV SCH (06:40)
[2022-08-25 07:04] LABS: BUN/Creatinine Ratio 23.6 (10.0-20.0); Potassium 3.9 mmol/L (3.5-5.1)
[2022-08-25] MEDS: SUCRALFATE 1 GM/10 ML ORAL SUSP PO SCH ×2 (07:25→12:10)
[2022-08-25 09:00] VITALS: BP 130/67
[2022-08-25] MEDS: PANTOPRAZOLE 40 MG/10 ML VIAL INJ IV SCH (09:08)
[2022-08-25] MEDS ORDERED: PANT40TA2 PO (11:24)
[2022-08-25] MEDS ORDERED: SUCR1SUS10 PO (11:25)
[2022-08-25 12:59] VITALS: BP 130/67
[2022-08-25 13:00] VITALS: BP 112/62
== END 2022-08-25 13:50 | disposition home or self-care (01) | DRG 377 ==
LOC: ER 07:36 → EDBD 07:36 → TELE 12:00 → ICU WEST 16:41 → TELE-WESTW 08-24 18:18
PROVIDERS: ADMIT Nurse Practitioner Family; ATTEND Internal Medicine Pulmonary Disease
PROC: 0DB68ZX Excision of Stomach, Via Natural or Artificial Opening Endoscopic, Diagnostic (ICD-10-PCS; 2022-08-22)
PROC: 30233N1 Transfusion of Nonautologous Red Blood Cells into Peripheral Vein, Percutaneous Approach (ICD-10-PCS; 2022-08-22)
PROC: 0DB98ZX Excision of Duodenum, Via Natural or Artificial Opening Endoscopic, Diagnostic (ICD-10-PCS; principal; 2022-08-22 16:34)
DX: K29.01 Acute gastritis with bleeding (principal); R57.1 Hypovolemic shock; D62 Acute posthemorrhagic anemia; E44.1 Mild protein-calorie malnutrition; L97.929 Non-pressure chronic ulcer of unspecified part of left lower leg with unspecified severity; K25.4 Chronic or unspecified gastric ulcer with hemorrhage; Z20.822 Contact with and (suspected) exposure to COVID-19; D72.829 Elevated white blood cell count, unspecified; E11.65 Type 2 diabetes mellitus with hyperglycemia; E87.5 Hyperkalemia; I11.0 Hypertensive heart disease with heart failure; I48.91 Unspecified atrial fibrillation; I50.9 Heart failure, unspecified; J44.9 Chronic obstructive pulmonary disease, unspecified; R79.1 Abnormal coagulation profile; Z79.01 Long term (current) use of anticoagulants; Z68.32 Body mass index [BMI] 32.0-32.9, adult
CPT/HCPCS: 36415; 71045; 80048; 80053; 81001; 82962; 83036; 83605; 83735; 83880; 84132; 84484; 85014; 85018; 85025; 85384; 85610; 85730; 86850; 86900; 86901; 86920; 87081; 87426; 93005; 94640; 96365; 96366; 96368; 96375; 96376; 97110; 97116; 97163; 97530; 99291; C9113; G0378; J1815; J2250; J2405; J2543; J2704

== ENCOUNTER → 2022-10-02 | Outpatient (CLI) | payer OTHER, MEDICAID ==
[~2022-10-02] MED LIST changes: +PANT40TA2 PO; +SUCR1SUS10 PO
== END | disposition home or self-care (01) ==
LOC: XYW 10:22
DX: I08.3 Combined rheumatic disorders of mitral, aortic and tricuspid valves (principal); I48.91 Unspecified atrial fibrillation
CPT/HCPCS: 93306

== ENCOUNTER → 2022-10-02 | Outpatient (CLI) | payer OTHER, MEDICAID ==
[2022-10-02 09:08] LABS: Basophils # (auto) 0.1 10 ^3/uL (0-0.2); Basophils % (auto) 0.8 % (0.0-2.0); Eosinophils # (auto) 0.2 10 ^3/uL (0-0.8); Eosinophils % (auto) 1.7 % (0.0-7.0); Hematocrit 35.9 % (41.0-53.0); Hemoglobin 11.5 g/dL (13.5-17.5); Lymphocytes # (auto) 2.4 10 ^3/uL (0.4-5.4); Lymphocytes % (auto) 24.7 % (10.0-50.0); Mean Corpuscular Hemoglobin 25.6 pg (28.0-32.0); Monocytes # (auto) 1.1 10 ^3/uL (0-1.3); Monocytes % (auto) 11.3 % (0.0-12.0); Neutrophils # (auto) 5.9 10 ^3/uL (1.6-8.6); Neutrophils % (auto) 61.5 % (37.0-80.0); Nucleated Red Blood Cells % 0.3 %; Red Blood Cells 4.48 10^6/uL (4.5-5.90); Red Cell Distribution Width 19.6 % (11.8-14.3); White Blood Cell 9.7 10^3/uL (4.4-10.8)
== END | disposition home or self-care (01) ==
LOC: LAB 08:49
PROVIDERS: ATTEND Internal Medicine
DX: K92.2 Gastrointestinal hemorrhage, unspecified (principal)
CPT/HCPCS: 36415; 85025

== ENCOUNTER → 2022-11-05 | Outpatient (CLI) | payer OTHER, MEDICAID ==
[~2022-11-05] MED LIST changes: -SUCR1SUS10 PO; +SUCR1SUS26 PO; -TAM04C PO; +TAMS-35 PO
[2022-11-05 11:25] LABS: Basophils # (auto) 0 10 ^3/uL (0-0.2); Eosinophils # (auto) 0.2 10 ^3/uL (0-0.8); Eosinophils % (auto) 2.2 % (0.0-7.0); Hemoglobin 12.8 g/dL (13.5-17.5); Lymphocytes # (auto) 2.5 10 ^3/uL (0.4-5.4); Nucleated Red Blood Cells % 0.1 %
[2022-11-05 11:27] LABS: Basophils % (auto) 0.4 % (0.0-2.0); Hematocrit 40.9 % (41.0-53.0); Lymphocytes % (auto) 28.5 % (10.0-50.0); Mean Corpuscular Hgb Conc. 31.2 g/dL (32.0-36.0); Mean Corpuscular Volume 73.7 fL (80.0-100.0); Monocytes # (auto) 1.1 10 ^3/uL (0-1.3); Neutrophils # (auto) 4.9 10 ^3/uL (1.6-8.6); Neutrophils % (auto) 55.9 % (37.0-80.0); Red Blood Cells 5.55 10^6/uL (4.5-5.90); Red Cell Distribution Width 21.8 % (11.8-14.3); White Blood Cell 8.8 10^3/uL (4.4-10.8)
[2022-11-05 11:51] LABS: Albumin 3.4 g/dL (3.4-5.0); Calcium 8.9 mg/dL (8.5-10.1); Potassium 5.5 mmol/L (3.5-5.1)
[2022-11-05 11:55] LABS: BUN/Creatinine Ratio 17.7 (10.0-20.0); Bilirubin, Total 0.6 mg/dL (0.2-1.0)
== END | disposition home or self-care (01) ==
LOC: LAB 11:03
PROVIDERS: ATTEND Internal Medicine
DX: E11.9 Type 2 diabetes mellitus without complications (principal); D64.9 Anemia, unspecified
CPT/HCPCS: 36415; 80053; 83036; 85025

== ENCOUNTER → 2023-03-09 | Outpatient (CLI) | payer OTHER, MEDICAID | END | disposition home or self-care (01) | LOC: RT 10:58 | PROVIDERS: ATTEND Internal Medicine | DX: R06.02 Shortness of breath (principal) | CPT/HCPCS: 94060; 94727; 94729 ==

== ENCOUNTER → 2023-03-09 | Outpatient (CLI) | payer OTHER, MEDICAID, MEDICARE ==
[2023-03-09 12:35] LABS: Basophils # (auto) 0 10 ^3/uL (0-0.2); Eosinophils # (auto) 0.3 10 ^3/uL (0-0.8); Hematocrit 41.4 % (41.0-53.0); Lymphocytes # (auto) 2.6 10 ^3/uL (0.4-5.4); Monocytes # (auto) 0.9 10 ^3/uL (0-1.3); Neutrophils # (auto) 4.5 10 ^3/uL (1.6-8.6); Nucleated Red Blood Cells % 0.1 %
[2023-03-09 12:37] LABS: Basophils % (auto) 0.6 % (0.0-2.0); Eosinophils % (auto) 3.6 % (0.0-7.0); Hemoglobin 12.9 g/dL (13.5-17.5); Lymphocytes % (auto) 31.1 % (10.0-50.0); Mean Corpuscular Hemoglobin 22.2 pg (28.0-32.0); Mean Corpuscular Volume 71.4 fL (80.0-100.0); Monocytes % (auto) 10.9 % (0.0-12.0); Neutrophils % (auto) 53.8 % (37.0-80.0); White Blood Cell 8.4 10^3/uL (4.4-10.8)
[2023-03-09 12:39] LABS: Red Cell Distribution Width 20.9 % (11.8-14.3)
== END | disposition home or self-care (01) ==
LOC: LAB 12:12
PROVIDERS: ATTEND Internal Medicine
DX: Z12.11 Encounter for screening for malignant neoplasm of colon (principal); D64.9 Anemia, unspecified
CPT/HCPCS: 36415; 85025

== ENCOUNTER → 2023-04-20 | Outpatient (CLI) | payer OTHER, MEDICAID ==
[2023-04-20 11:40] LABS: Basophils # (auto) 0 10 ^3/uL (0-0.2); Basophils % (auto) 0.1 % (0.0-2.0); Eosinophils # (auto) 0 10 ^3/uL (0-0.8); Lymphocytes # (auto) 1.4 10 ^3/uL (0.4-5.4); Monocytes # (auto) 0.7 10 ^3/uL (0-1.3); Neutrophils # (auto) 12.9 10 ^3/uL (1.6-8.6); Nucleated Red Blood Cells % 0.2 %
[2023-04-20 11:43] LABS: Hematocrit 42.1 % (41.0-53.0); Lymphocytes % (auto) 9.1 % (10.0-50.0); Mean Corpuscular Hemoglobin 21.3 pg (28.0-32.0); Mean Corpuscular Hgb Conc. 30.9 g/dL (32.0-36.0); Mean Corpuscular Volume 69.1 fL (80.0-100.0); Monocytes % (auto) 4.9 % (0.0-12.0); Neutrophils % (auto) 85.9 % (37.0-80.0); Red Cell Distribution Width 19.4 % (11.8-14.3)
== END | disposition home or self-care (01) ==
LOC: LAB 11:05
PROVIDERS: ATTEND Internal Medicine
DX: J44.9 Chronic obstructive pulmonary disease, unspecified (principal)
CPT/HCPCS: 36415; 85025

== ENCOUNTER → 2023-09-17 | Outpatient (CLI) | payer OTHER, MEDICAID ==
[2023-09-17 13:02] LABS: Basophils # (auto) 0 10 ^3/uL (0-0.2); Basophils % (auto) 0.5 % (0.0-2.0); Eosinophils # (auto) 0.1 10 ^3/uL (0-0.8); Eosinophils % (auto) 2.2 % (0.0-7.0); Hematocrit 55.7 % (41.0-53.0); Hemoglobin 18.4 g/dL (13.5-17.5); Lymphocytes # (auto) 1.9 10 ^3/uL (0.4-5.4); Lymphocytes % (auto) 32.2 % (10.0-50.0); Mean Corpuscular Volume 87.8 fL (80.0-100.0); Monocytes # (auto) 0.7 10 ^3/uL (0-1.3); Monocytes % (auto) 10.8 % (0.0-12.0); Neutrophils # (auto) 3.3 10 ^3/uL (1.6-8.6); Neutrophils % (auto) 54.3 % (37.0-80.0); Nucleated Red Blood Cells % 0.1 %; Red Blood Cells 6.34 10^6/uL (4.5-5.90); Red Cell Distribution Width 16.9 % (11.8-14.3)
[2023-09-17 14:01] LABS: Erythrocyte Sedimentation Rate 1 mm/hr (0-20)
== END | disposition home or self-care (01) ==
LOC: LAB 12:45
PROVIDERS: ATTEND Internal Medicine
DX: I20.0 Unstable angina (principal); I50.9 Heart failure, unspecified
CPT/HCPCS: 36415; 85025; 85652

== ENCOUNTER 2024-05-14 14:02 | Inpatient (IN) | payer OTHER, MEDICAID ==
[~2024-05-14] VITALS: Ht 180.3 cm; Wt 91.0 kg
[~2024-05-14 14:02] MED LIST changes: +CEPH250C PO; +DAPA1TAB4 PO; +DOCU-94 PO; +DONE5TAB80 PO; +FLUT50SP NAS; +FURO40TA4 PO; +GABA-1250 PO; +GLIP5TAB21 PO; +METF-370 PO; +METO-289 PO; +METO1TAB9 PO; +PANT40T PO; +POLY335015 PO; +RIV20T PO; +SPIR25TA8 PO; +TAMS0.4C39 PO
--- NOTE | 2024-05-14 14:28 | ED.PDOC ---
History of Present Illness HPI Comments 89Y M with PMHx DM, CHF, HTN, COPD, Afib, and pacemaker presents to ED via EMS for chief complaint general weakness. Pt denies chest pain, SOB, n/v/d, cough, and dysuria. Per EMS, pt was experiencing wheezing upon EMS arrival and was provided with one breathing treatment. Pt is on blood thinner medication. Time Seen by : 14:03 Primary Care Provider: BLAKE Reviewed Notes: Nurses Notes, Oven Press Tender Notes, Medications, Allergies Allergies: Coded Allergies: NO KNOWN ALLERGIES (Unverified , 12/20/19) Home Meds Active Scripts Tamsulosin Hcl (Flomax) 0.4 Mg Cap, 0.4 MG PO HS for 30 Days, #30 CAP Prov:RIAZ CARDENAS MD 04/29/23 Cephalexin (KEFLEX CAPSULE) 250 Mg Cp, 500 MG PO TID for 7 Days, #21 CAP Prov:RIAZ CARDENAS MD 04/29/23 Polyethylene Glycol 3350 (Miralax) 17 Gm Pow, 17 GM PO DAILY PRN, #30 POW Prov:STEPHAN VORA MD 01/05/23 Docusate Sodium (Colace) 100 Mg Cap, 1 CAP PO BID, #60 CAP 2 Refills Prov:STEPHAN VORA MD 01/05/23 Sucralfate (CARAFATE SUSP) 1 Gm/10 Ml Ss, 1 GM PO QIDACHS for 30 Days, #120 ML Prov:CHRISTY LEAL MD 08/25/22 Pantoprazole Sodium Sesquihydr (Protonix) 40 Mg Tab, 40 MG PO DAILY, #30 TAB Prov:CHRISTY LEAL MD 08/25/22 Levofloxacin (Levaquin) 500 Mg Tab, 500 MG PO DAILY, #10 TAB Prov:JOANIE ALCANTAR MD 01/05/20 Tamsulosin Hcl (Flomax) 0.4 Mg Cap, 0.4 MG PO QPM, #30 CAP Prov:JOANIE ALCANTAR MD 01/05/20 Metoprolol Tartrate (Lopressor) 25 Mg Tb, 25 MG PO BID, #60 TAB Prov:JOANIE ALCANTAR MD 01/05/20 Lisinopril (Lisinopril) 5 Mg Tab, 5 MG PO DAILY, #30 TAB Prov:JOANIE ALCANTAR MD 01/05/20 Rivaroxaban (XARELTO) 20 Mg Tab, 1 TAB PO QPM, #30 TAB Prov:JOANIE ALCANTAR MD 01/05/20 Pravastatin Sodium (PRAVACHOL TABLET) 20 Mg Tb, 1 TAB PO DAILY, #30 TAB Prov:JOANIE ALCANTAR MD 01/05/20 Metformin Hydrochloride (METFORMIN HCL ER) 500 Mg Tab, 1 TAB PO DAILY, #30 TAB Prov:JOANIE ALCANTAR MD 01/05/20 Reported Medications Donepezil Hydrochloride (DONEPEZIL HCL) 5 Mg Tab, 1 TAB PO DAILY 04/27/23 Metoprolol Succinate (Metoprolol Succinate Er) 100 Mg Tab, 1 TAB PO DAILY 04/27/23 Rivaroxaban (Xarelto Tablet) 20 Mg Tb, 1 TAB PO DAILY 12/31/22 Furosemide (Furosemide) 40 Mg Tab, 1 TAB PO BID 12/31/22 Pantoprazole Sodium Sesquihydr (Pantoprazole Sodium) 40 Mg Tab, 1 TAB PO DAILY 12/31/22 Glipizide (Glipizide) 5 Mg Tab, 1 TAB PO DAILY 12/31/22 Fluticasone Propionate (Nasal) (Fluticasone Propionate) 50 Mcg/Act Spr, SPRAY JACQUE 12/31/22 Spironolactone (Spironolactone) 25 Mg Tab, 0.5 TAB PO DAILY 12/31/22 Metoprolol Succinate (Metoprolol Succinate Er) 50 Mg Tab, 1 TAB PO DAILY 12/31/22 Metformin Hydrochloride (Metformin Hcl) 500 Mg Tab, 1 TAB PO BID 12/31/22 Gabapentin (Gabapentin) 300 Mg Cap, 1 CAP PO DAILY 12/31/22 Tamsulosin Hcl (Tamsulosin Hcl) 0.4 Mg Cap, 2 CAP PO DAILY 12/31/22 Dapagliflozin Propanediol (Farxiga) 10 Mg Tab, 1 TAB PO DAILY 12/31/22 Sucralfate (CARAFATE SUSP) 1 Gm/10 Ml Ss, ML PO 12/31/22 Digoxin (Digoxin) 125 Mcg Tab, 1 TAB PO DAILY 12/31/22 Montelukast Sodium (MONTELUKAST SODIUM) 10 Mg Tab, 1 TAB PO QHSP, #30 TAB 5 Refills 12/27/19 Sennosides-Docusate Sodium (Senna Plus 50-8.6 mg) 1 Cap Cap, 1 CAP PO QHS, CAP 12/27/19 Loratadine (CLARITIN TABLET) 10 Mg Tb, 10 MG PO QHSP, TAB 12/27/19 Digoxin (Digoxin) 125 Mcg Tab, 125 MCG PO DAILY, TAB 12/27/19 Cholecalciferol (VITAMIN D3) 2,000 Unit Tab, 1 TAB PO DAILY, #30 TAB 5 Refills 12/27/19 Finasteride (Finasteride) 5 Mg Tab, 5 MG PO DAILY for 30 Days, MG 12/27/19 Information Source: Patient, Emergency Med Personnel Mode of Arrival: EMS Severity: Mild Timing: Hours Duration: Since onset Prehospital treatment: 12 Lead EKG, Breathing Tx Past Medical History PAST MEDICAL HISTORY: AFIB, CHF, COPD, DM, HTN Surgical History: Pacemaker Family History Family History: Reviewed,noncontributory to illness, Family hx of HTN Social History Smoker: Non-Smoker Alcohol: Denies ETOH Use Drugs: Denies Drug Use Lives In: Home Constitutional: reports: weakness; denies: chills, diaphoresis, fatigue, fever, malaise, sweats, others EENTM: denies: blurred vision, double vision, ear bleeding, ear discharge, ear drainage, ear pain, ear ringing, eye pain, eye redness, hearing loss, mouth pain, mouth swelling, nasal discharge, nose bleeding, nose congestion, nose pain, photophobia, tearing, throat pain, throat swelling, voice changes, others Respiratory: reports: wheezing; denies: cough, hemoptysis, orthopnea, SOB at rest, shortness of breath, SOB with excertion, stridor, others Cardiovascular: denies: chest pain, dizzy spells, diaphoresis, Dyspnea on exertion, edema, irregular heart beat, left arm pain, lightheadedness, palpitations, PND, syncope, others Gastrointestinal: denies: abdomen distended, abdominal pain, blood streaked bowels, constipated, diarrhea, dysphagia, difficulty swallowing, hematemesis, melena, nausea, poor appetite, poor fluid intake, rectal bleeding, rectal pain, vomiting, others Genitourinary: denies: burning, dysuria, flank pain, frequency, hematuria, incontinence, penile discharge, penile sore, pain, testicle pain, testicle swelling, urgency, others Neurological: denies: dizziness, fainting, headache, left sided numbness, left sided weakness, numbness, paresthesia, pre-existing deficit, right sided numbness, right sided weakness, seizure, speech problems, tingling, tremors, weakness, others Musculoskeletal: denies: back pain, gout, joint pain, joint swelling, muscle pain, muscle stiffness, neck pain, others Integumetry: denies: bruises, change in color, change in hair/nails, dryness, laceration, lesions, lumps, rash, wounds, others Allergic/Immunocompromised: denies: Difficulty Healing, Frequent Infections, Hives, Itching, others Hematologic/Lymphatic: denies: anemia, blood clots, easy bleeding, easy bruising, swollen glands, others Endocrine: denies: excessive hunger, excessive sweating, excessive thirst, excessive urination, flushing, intolerance to cold, intolerance to heat, unexplained weight gain, unexplained weight loss, others Psychiatric: denies: anxiety, bipolar disorder, depression, hopeless, panic disorder, schizophrenia, sleepless, suicidal, others All Other Systems: Reviewed and Negative Physical Exam General Appearance: No Apparent Distress, Normal HEENT: Normal ENT Inspection, Pharynx Normal, TMs Normal Neck: Full Range of Motion, Non-Tender, Normal, Normal Inspection Respiratory: Chest Non-Tender, Lungs Clear, No Accessory Muscle Use, No Respiratory Distress, Normal Breath Sounds Cardiovascular: No Edema, No JVD, No Murmur, No Gallop, Normal Peripheral Pulses, Regular Rate/Rhythm Breast Exam: Deferred Gastrointestinal: No Organomegaly, Non Tender, No Pulsatile Mass, Normal Bowel Sounds, Soft Genitalia: Deferred Pelvic: Deferred Rectal: Deferred Extremities: No calf tenderness, Normal capillary refill, Normal inspection, Normal range of motion, Non-tender, No pedal edema Musculoskeletal : Apperance: Normal Neurologic: Alert, binding dyer II-XII nml as Tested, No Motor Deficits, Normal Affect, Normal Mood, No Sensory Deficits Cerebellar Function: Normal Reflexes: Normal Skin: Dry, Normal Color, Warm Lymphatic: No Adenopathy Was a procedure done? Was a procedure done?: No Differential Dx Considerations may include: Viral syndrome, pneumonia, electrolyte abnormality, CVA, ACS X-Ray, Labs, Meds, VS Vital Signs Date Time Temp Pulse Resp B/P (MAP) Pulse Ox O2 Delivery O2 Flow Rate FiO2 05/14/24 14:34 98.0 81 20 177/86 (116) 98 Lab Test 05/14/24 15:40 05/14/24 14:25 Range/Units Troponin I High Sensitivity 11 11 </=54 ng/L White Blood Count 10.8 4.4-10.8 10^3/uL Red Blood Count 6.06 H 4.5-5.90 10^6/uL Hemoglobin 18.5 H 13.5-17.5 g/dL Hematocrit 55.1 H 41.0-53.0 % Mean Corpuscular Volume 90.9 80.0-100.0 fL Mean Corpuscular Hemoglobin 30.6 28.0-32.0 pg Mean Corpuscular Hemoglobin Concent 33.6 32.0-36.0 g/dL Red Cell Distribution Width 15.1 H 11.8-14.3 % Platelet Count 134 L 140-450 10^3/uL Mean Platelet Volume 9.9 6.9-10.8 fL Neutrophils (%) (Auto) 73.3 37.0-80.0 % Lymphocytes (%) (Auto) 19.1 10.0-50.0 % Monocytes (%) (Auto) 6.6 0.0-12.0 % Eosinophils (%) (Auto) 0.7 0.0-7.0 % Basophils (%) (Auto) 0.3 0.0-2.0 % Neutrophils # (Auto) 8.0 1.6-8.6 10 ^3/uL Lymphocytes # (Auto) 2.1 0.4-5.4 10 ^3/uL Monocytes # (Auto) 0.7 0-1.3 10 ^3/uL Eosinophils # (Auto) 0.1 0-0.8 10 ^3/uL Basophils # (Auto) 0 0-0.2 10 ^3/uL Nucleated Red Blood Cells 0.1 % Sodium Level 143 136-145 mmol/L Potassium Level 4.0 3.5-5.1 mmol/L Chloride Level 106 98-107 mmol/L Carbon Dioxide Level 26 20-31 mmol/L Anion Gap 11 5-15 Blood Urea Nitrogen 17 9-23 mg/dL Creatinine 1.24 0.700-1.30 mg/dL Glomerular Filtration Rate Calc 56 >90 mL/min BUN/Creatinine Ratio 13.7 10.0-20.0 Serum Glucose 152 H 74-106 mg/dL Calcium Level 10.0 8.7-10.4 mg/dL B-Type Natriuretic Peptide 123.10 0-100 pg/mL Time of 1ST Reevaluation: 14:33 Reevaluation 1ST: Unchanged Patient Education/Counseling: Diagnosis, Treatment Family Education/Counseling: No Family Present Departure 1 Departure Time of Disposition: 18:57 (Patient with worsening weakness and shortness of breath. Workup so far is otherwise benign. We will admit patient for further workup) Impression: Primary Impression: Generalized weakness Disposition: ADMITTED INPATIENT Admit to: Med Surg Condition: Serious Critical Care Note Critical Care Time?: No Stability Stability form required: No Heart Score Heart Score: Heart Score Response (Comments) Value History N/A 0 EKG N/A 0 Age N/A 0 Risk Factors N/A 0 Troponin N/A 0 Total 0 I personally scribed for LICO HONG MD ([email or web address]) on 05/14/24 at 14:28. Electronically submitted by Delaney Bains ([email or web address]). LICO HONG MD May 14, 2024 14:28
[2024-05-14 15:01] LABS: Basophils # (auto) 0 10 ^3/uL (0-0.2); Eosinophils # (auto) 0.1 10 ^3/uL (0-0.8); Eosinophils % (auto) 0.7 % (0.0-7.0); Platelet Count (auto) 134 10^3/uL (140-450)
[2024-05-14 15:05] LABS: Basophils % (auto) 0.3 % (0.0-2.0); Hematocrit 55.1 % (41.0-53.0); Hemoglobin 18.5 g/dL (13.5-17.5); Lymphocytes # (auto) 2.1 10 ^3/uL (0.4-5.4); Lymphocytes % (auto) 19.1 % (10.0-50.0); Mean Corpuscular Hemoglobin 30.6 pg (28.0-32.0); Mean Corpuscular Hgb Conc. 33.6 g/dL (32.0-36.0); Mean Corpuscular Volume 90.9 fL (80.0-100.0); Monocytes # (auto) 0.7 10 ^3/uL (0-1.3); Monocytes % (auto) 6.6 % (0.0-12.0); Neutrophils % (auto) 73.3 % (37.0-80.0); Nucleated Red Blood Cells % 0.1 %; Red Blood Cells 6.06 10^6/uL (4.5-5.90); Red Cell Distribution Width 15.1 % (11.8-14.3); White Blood Cell 10.8 10^3/uL (4.4-10.8)
[2024-05-14 15:12] LABS: Chloride 106 mmol/L (98-107); Sodium 143 mmol/L (136-145)
[2024-05-14 15:13] LABS: Anion Gap 11 (5-15); Carbon Dioxide 26 mmol/L (20-31)
[2024-05-14 15:19] LABS: BUN/Creatinine Ratio 13.7 (10.0-20.0); Blood Urea Nitrogen 17 mg/dL (9-23)
[2024-05-14 15:20] LABS: Glucose 152 mg/dL (74-106)
--- NOTE | 2024-05-14 17:54 | DVH ---
CLINICAL INFORMATION: 89 years old, Male; shortness of breath. TECHNIQUE: Single AP portable chest radiograph was obtained. COMPARISON: XY CHEST PORTABLE on DOS: 08/22/22, CHEST PORTABLE on DOS: 06/06/20, CHEST PORTABLE on DOS: 12/27/19 FINDINGS: Lungs: Mild atelectasis in the lung bases. No focal consolidation. Cardiac: Heart size is within normal limits. Stable satisfactory positioning of the pacemaker leads. Pulmonary vasculature: Unremarkable. Mediastinum/alton: Unremarkable. Bones: No acute osseous abnormality identified. Other: No other significant findings. IMPRESSION: No evidence of acute disease in the chest.
[2024-05-14] MEDS: ALBUTEROL SULF 2.5 MG/0.5ML(0.5%) NEB SOLN NEB ONE (19:23)
[2024-05-14] MEDS: IPRATROPIUM BROM 0.5 MG/2.5ML INH SOL NEB ONE (19:23)
[2024-05-14] MEDS: IPRATROPIUM BROM 0.5 MG/2.5ML INH SOL ONE (19:24)
[2024-05-14] MEDS: ALBUTEROL SULF 2.5 MG/0.5ML(0.5%) NEB SOLN ONE (19:25)
[2024-05-14] MEDS ORDERED: hydrALAZINE HCL 20 MG/ML VL IV PRN (19:45)
[2024-05-14] MEDS ORDERED: ACETAMINOPHEN 325 MG TAB PO PRN (19:45)
[2024-05-14] MEDS ORDERED: IPRATROPIUM BROM 0.5 MG/2.5ML INH SOL NEB PRN (19:45)
[2024-05-14] MEDS ORDERED: DOCUSATE SOD 100 MG CAP PO PRN (19:45)
[2024-05-14] MEDS ORDERED: ALBUTEROL SULF 2.5 MG/0.5ML(0.5%) NEB SOLN NEB PRN (19:45)
[2024-05-14] MEDS ORDERED: HYDROcodone-ACET 5/325MG TAB PO PRN (19:45)
[2024-05-14] MEDS ORDERED: DEXTROSE (50%) 50ML SYRG IV PRN (19:45)
[2024-05-14] MEDS ORDERED: ONDANSETRON HCL 4 MG/2 ML VIAL IV PRN (19:45)
[2024-05-14 20:00] VITALS: BP 177/86; PULSE 81; RESP 20; TEMP 98; O2SAT 95
--- NOTE | 2024-05-14 20:25 | DVHHP2 ---
History of Present Illness Reason for Visit: Generalized weakness History of Present Illness The patient is a 89-year-old male with past medical history of AFib, CHF, COPD, DM, and hypertension who presented to [facility] ED with complaint of generalized weakness. Patient reports symptoms progressively get worse with shortness a breath, wheezing, and fatigue. Patient was seen and evaluated in the ED, laboratory data shows WBC 10.8, hemoglobin 18.5, hematocrit 55.1, platelets 134, sodium 143, potassium 4.0, BUN 17, creatinine 1.24, GFR 56, glucose 152, BNP 123.10, troponin 11, blood pressure 177/86, heart rate 82, temperature 98.0 F, O2 saturation 96% on oxygen. Chest x-ray show no evidence of acute disease in the chest. Patient was given breathing treatment, please see medication orders section in the computer. On my assessment, patient denied chest pain, no headache, no dizziness, no diaphoresis, no diarrhea, no nausea, no vomiting, no fever, no chills. Patient was admitted for further evaluation and medical management. Past Medical History AFIB, CHF, COPD, DM, HTN Past Surgical History Pacemaker Family History Reviewed, noncontributory to the management of this case. Past Social History The patient lives at home, denies smoking, alcohol or illicit drugs abuse. Review of Systems Constitutional: Yes: Weakness, Other (Fatigue); No: Fever, Chills, Sweats, Malaise Eyes: No: Pain, Vision change, Conjunctivae inflammation, Eyelid inflammation, Other, Redness ENT: No: Ear pain, Ear discharge, Nose pain, Nose discharge, Nose congestion, Mouth pain, Mouth swelling, Throat pain, Throat swelling, Other Respiratory: Shortness of breath, Wheezing; No: Cough, Dry, SOB with excertion, Hemoptysis, Pleuritic Pain, Sputum, Wheezing, Other Cardiovascular: No: Chest Pain, Palpitations, Orthopnea, Paroxysmal Noc. Dyspnea, Edema, Lt Headedness, Other Gastrointestinal: No: Nausea, Vomiting, Abdominal Pain, Diarrhea, Constipation, Melena, Hematochezia, Other Genitourinary: No Dysuria, No Frequency, No Incontinence, No Hematuria, No Ret ention, No Other Musculoskeletal: No: other, neck pain, shoulder pain, arm pain, back pain, hand pain, leg pain, foot pain Skin: No: Rash, Lesions, Jaundice, Bruising, Other Neurological: No: Weakness, Numbness, Incoordination, Change in speech, Confusion, Seizures, Other Allergies: Coded Allergies: NO KNOWN ALLERGIES (Unverified , 12/20/19) Medications Current Medications Medications Dose Ordered Sig/Nasreen Route Start Time Stop Time Status Last Admin Dose Admin Methylprednisolone Sodium Succinate 40 mg Q8HR IV 05/15/24 06:00 Albuterol 2.5 mg Q4HPRN PRN NEB 05/14/24 19:45 Ipratropium [place] 0.5 mg Q4HPRN PRN NEB 05/14/24 19:45 Famotidine 20 mg Q12HR IV 05/14/24 22:00 Hydralazine HCl 10 mg Q6HP PRN IV 05/14/24 19:45 Metoprolol Tartrate 25 mg BID PO 05/14/24 22:00 Tamsulosin HCl 0.4 mg QPM PO 05/15/24 18:00 Digoxin 0.125 mg DAILY PO 05/15/24 10:00 Donepezil HCl 5 mg HS PO 05/14/24 22:00 Diagnostic Test (Pha) 1 strip ACHS 05/14/24 22:00 Insulin Human Regular HS SC 05/14/24 22:00 Insulin Human Regular AC SC 05/15/24 07:00 Dextrose 50 ml UD PRN IV 05/14/24 19:45 Sodium Chloride 10 ml Q8HR IV 05/14/24 22:00 Acetaminophen/ Hydrocodone Bitart 1 tab Q4HP PRN PO 05/14/24 19:45 Ondansetron HCl 4 mg Q4HP PRN IV 05/14/24 19:45 Docusate Sodium 100 mg BIDPRN PRN PO 05/14/24 19:45 Acetaminophen 650 mg Q6HP PRN PO 05/14/24 19:45 Aspirin 81 mg DAILY PO 05/15/24 10:00 Atorvastatin Calcium 20 mg HS PO 05/14/24 22:00 Exam Vital Signs Vital Signs Date Time Temp Pulse Resp B/P (MAP) Pulse Ox O2 Delivery O2 Flow Rate FiO2 05/14/24 19:23 18 95 Room Air* 0 21 05/14/24 14:34 98.0 81 177/86 (116) General Appearance: Alert, Oriented X3, Cooperative, No acute distress HEENT: Atraumatic, PERRLA, EOMI, Mucous membr. moist/pink Respiratory: Clear to auscultation, Normal air movement Cardiovascular: Regular rate, Normal S1, Normal S2, No murmurs Abdominal: Normal bowel sounds, Soft, No tenderness, No hepatospenomegaly, No masses Extremities: No clubbing, No cyanosis, No edema, Normal pulses, No tenderness/swelling Skin: No rashes, No breakdown, No significant lesion Neuro: Normal speech, Normal tone, Sensation intact, Cranial nerves 3-12 NL, Reflexes 2+, Other (Unsteady gait/generalized weakness) Psych/Mental Status: Mental status NL, Mood NL Labs/Xrays Labs Test 05/14/24 15:40 05/14/24 14:25 Range/Units Troponin I High Sensitivity 11 </=54 ng/L White Blood Count 10.8 4.4-10.8 10^3/uL Red Blood Count 6.06 H 4.5-5.90 10^6/uL Hemoglobin 18.5 H 13.5-17.5 g/dL Hematocrit 55.1 H 41.0-53.0 % Mean Corpuscular Volume 90.9 80.0-100.0 fL Mean Corpuscular Hemoglobin 30.6 28.0-32.0 pg Mean Corpuscular Hemoglobin Concent 33.6 32.0-36.0 g/dL Red Cell Distribution Width 15.1 H 11.8-14.3 % Platelet Count 134 L 140-450 10^3/uL Mean Platelet Volume 9.9 6.9-10.8 fL Neutrophils (%) (Auto) 73.3 37.0-80.0 % Lymphocytes (%) (Auto) 19.1 10.0-50.0 % Monocytes (%) (Auto) 6.6 0.0-12.0 % Eosinophils (%) (Auto) 0.7 0.0-7.0 % Basophils (%) (Auto) 0.3 0.0-2.0 % Neutrophils # (Auto) 8.0 1.6-8.6 10 ^3/uL Lymphocytes # (Auto) 2.1 0.4-5.4 10 ^3/uL Monocytes # (Auto) 0.7 0-1.3 10 ^3/uL Eosinophils # (Auto) 0.1 0-0.8 10 ^3/uL Basophils # (Auto) 0 0-0.2 10 ^3/uL Nucleated Red Blood Cells 0.1 % Sodium Level 143 136-145 mmol/L Potassium Level 4.0 3.5-5.1 mmol/L Chloride Level 106 98-107 mmol/L Carbon Dioxide Level 26 20-31 mmol/L Anion Gap 11 5-15 Blood Urea Nitrogen 17 9-23 mg/dL Creatinine 1.24 0.700-1.30 mg/dL Glomerular Filtration Rate Calc 56 >90 mL/min BUN/Creatinine Ratio 13.7 10.0-20.0 Serum Glucose 152 H 74-106 mg/dL Calcium Level 10.0 8.7-10.4 mg/dL B-Type Natriuretic Peptide 123.10 0-100 pg/mL PATIENT: JOSE ROPERACCT: [id number] UNIT: [id number] : 1935 LOC: ER ROOM / BED: / AGE / SEX: 89 / M ADM STATUS: REG ER SERVICE 34 ORDERING PHYSICIAN: LICO HONG MD PROCEDURE(s): CXRP - CHEST PORTABLE REASON: SOB ORDER NUMBER(s): [id number], ACCESSION NUMBER(s): [id number] CLINICAL INFORMATION: 89 years old, Male; shortness of breath. TECHNIQUE: Single AP portable chest radiograph was obtained. COMPARISON: XY CHEST PORTABLE on DOS: 08/22/22, CHEST PORTABLE on DOS: 06/06/20, CHEST PORTABLE on DOS: 12/27/19 FINDINGS: Lungs: Mild atelectasis in the lung bases. No focal consolidation. Cardiac: Heart size is within normal limits. Stable satisfactory positioning of the pacemaker leads. Pulmonary vasculature: Unremarkable. Mediastinum/alton: Unremarkable. Bones: No acute osseous abnormality identified. Other: No other significant findings. IMPRESSION: No evidence of acute disease in the chest. Assessment/Plan Assessment/Plan Generalized weakness Unsteady gait Acute respiratory distress Hypertensive urgency Plan 1. Admit to telemetry unit 2. Breathing treatment 3. Pain control management 4. Management of fluids and electrolytes 5. Consultation for hospitalist 6. Diagnostic tests chest x-ray 7. DVT prophylaxis-on aspirin 8. Repeat labs CBC, CMP in a.m. 9. Continue with current medical management 10. Treatment plan discussed with patient and RN. Patient verbalized understanding. Plan discussed with: Patient, Other (RN) My Orders Orders - BRENDA BARAKAT DNP Procedure Category Date Status Time Albuterol Medneb PHA 05/14/24 In Process (Ventolin Medneb) 19:45 Ipratropium Medneb PHA 05/14/24 In Process (Atrovent Medneb) 19:45 Famotidine Injection PHA 05/14/24 In Process (Pepcid Injection) 22:00 Consistent DIET 05/15/24 Transmitted Carb(Ccho)Diabetes Breakfast Hydralazine Injection PHA 05/14/24 In Process (Apresoline Inject 19:45 Metoprolol Tartrate PHA 05/14/24 In Process Tablet (Lopressor Ta 22:00 Tamsulosin PHA 05/15/24 In Process Hydrochloride (Flomax) 18:00 Digoxin Tablet PHA 05/15/24 In Process (Lanoxin Tablet) 10:00 Donepezil Tablet PHA 05/14/24 In Process (Aricept Tablet) 22:00 Digoxin (Lanoxin) LAB 05/14/24 In Process 19:42 Glucose Blood PHA 05/14/24 In Process (Accu-Chek Comfort 22:00 Insulin R (Human) PHA 05/14/24 In Process (Insulin R) 22:00 Insulin R (Human) PHA 05/15/24 In Process (Insulin R) 07:00 Dextrose 50% Syringe PHA 05/14/24 In Process 19:45 Allergies HERMAN 05/14/24 In Process 19:42 Code Status CODE 05/14/24 Transmitted 19:42 Sodium Chloride Lock PHA 05/14/24 In Process (Saline Lock Ns) 22:00 Oxygen Per Hour RT 05/14/24 Transmitted 19:42 Hydrocodone-Acet PHA 05/14/24 In Process 5/325mg Tab ([place] 19:45 Ondansetron Hcl PHA 05/14/24 In Process (Zofran) 19:45 Docusate Sodium PHA 05/14/24 In Process Capsule (Colace 19:45 Fall Risk Precautions HERMAN 05/14/[address] 19:42 Complete Blood Count LAB 05/15/24 Verified 04:00 Comprehensive LAB 05/15/24 Verified Metabolic Panel 04:00 Condition: Serious HERMAN 05/14/24 In Process 19:42 Acetaminophen Tablet PHA 05/14/24 In Process (Tylenol Tablet) 19:45 Sequential HERMAN 05/14/24 In Process Compression Device Aspirin Tablet PHA 05/15/24 In Process 10:00 Atorvastatin (Lipitor) PHA 05/14/24 In Process 22:00 Methylprednisolone PHA 05/15/24 In Process Sod Succ (Solu Medrol 06:00 Problem List: (1) Generalized weakness (2) Unsteady gait (3) Acute respiratory distress (4) Hypertensive urgency Date of Service: May 14, 2024 Billing Provider: BRENDA BARAKAT DNP Common Visit Codes: [id number] INP/OBS CARE (HIGH) BRENDA BARAKAT DNP May 14, 2024 20:25
[2024-05-14] MEDS ORDERED: MORPHINE SULFATE INJ 2 MG/ml SYRG IV PRN (20:30)
[2024-05-14] MEDS ORDERED: NITROGLYCERIN 0.4 MG SL TAB SL PRN (20:30)
[2024-05-14] MEDS: ACCU-CHEK COMFORT CURVE STRIP VI SCH (22:00)
[2024-05-14] MEDS: InsuLIN REG 1unit/0.01ml Soln (100units/ml) SC SCH (23:16)
[2024-05-14] MEDS: METOPROLOL TARTRATE 25 MG TAB PO SCH (23:27)
[2024-05-14] MEDS: SODIUM CHLOR 0.9% PF (SALINE LOCK) 10ML VIAL/SYR IV SCH (23:28)
[2024-05-14] MEDS: ATORVASTATIN 20 MG TAB PO SCH (23:34)
[2024-05-14] MEDS: DONEPEZIL HYDROCHLORIDE 5 MG TAB PO SCH (23:34)
[2024-05-14] MEDS: FAMOTIDINE (10MG/ML) 2ML VL IV SCH (23:42)
[2024-05-14] MEDS: methylPREDNISolone SOD SUCC 125 MG/2 ML VL IV ONE (23:42)
[2024-05-15 05:25] LABS: Basophils # (auto) 0 10 ^3/uL (0-0.2); Basophils % (auto) 0.1 % (0.0-2.0); Eosinophils # (auto) 0 10 ^3/uL (0-0.8); Hematocrit 51.2 % (41.0-53.0); Hemoglobin 17.2 g/dL (13.5-17.5); Lymphocytes # (auto) 0.4 10 ^3/uL (0.4-5.4); Lymphocytes % (auto) 3.3 % (10.0-50.0); Mean Corpuscular Hemoglobin 30.4 pg (28.0-32.0); Mean Corpuscular Hgb Conc. 33.5 g/dL (32.0-36.0); Mean Corpuscular Volume 90.7 fL (80.0-100.0); Monocytes # (auto) 0.4 10 ^3/uL (0-1.3); Monocytes % (auto) 3.7 % (0.0-12.0); Neutrophils # (auto) 11.1 10 ^3/uL (1.6-8.6); Neutrophils % (auto) 92.9 % (37.0-80.0); Nucleated Red Blood Cells % 0.1 %; Platelet Count (auto) 120 10^3/uL (140-450); Red Blood Cells 5.64 10^6/uL (4.5-5.90); Red Cell Distribution Width 15.2 % (11.8-14.3)
[2024-05-15 05:51] LABS: Alanine Aminotransferase 23 U/L (7-40); Albumin 3.8 g/dL (3.2-4.8); Anion Gap 12 (5-15); Aspartate Aminotransferase 22 U/L (13-40); BUN/Creatinine Ratio 14.4 (10.0-20.0); Blood Urea Nitrogen 18 mg/dL (9-23); Calcium 9.7 mg/dL (8.7-10.4); Carbon Dioxide 22 mmol/L (20-31); Potassium 3.7 mmol/L (3.5-5.1); Sodium 142 mmol/L (136-145); Total Protein 6.4 g/dL (5.7-8.2)
[2024-05-15 06:03] LABS: Alkaline Phosphatase 150 U/L (46-116); Bilirubin, Total 1.7 mg/dL (0.2-1.0); Chloride 108 mmol/L (98-107); Glucose 177 mg/dL (74-106)
[2024-05-15] MEDS: methylPREDNISolone SOD SUCC 40 MG/ML VL IV SCH (06:08)
[2024-05-15 06:20] VITALS: O2SAT 98
[2024-05-15 06:50] VITALS: BP 112/58; PULSE 88; RESP 20; TEMP 97.7; O2SAT 94
[2024-05-15] MEDS: InsuLIN REG 1unit/0.01ml Soln (100units/ml) SC SCH (07:56)
[2024-05-15] MEDS: ASPirin 81 mg TAB PO SCH (10:54)
[2024-05-15] MEDS: POLYETHYLENE GLYCOL 17 GM PWDR PO ONE (10:55)
[2024-05-15] MEDS: DIGOXIN 0.125 MG TAB PO SCH (10:55)
--- NOTE | 2024-05-15 11:30 | DVHDSRES ---
Discharge Summary Date of Admission Resident Creating Document: ZOLTAN FRIAS May 14, 2024 at 20:23 Date of Discharge: May 15, 2024 Labs/Diagnostic Data: Laboratory Results Test 05/15/24 11:01 05/15/24 04:55 05/14/24 15:40 05/14/24 14:25 POC Glucose 337 mg/dl (70-106) White Blood Count 12.0 10^3/uL (4.4-10.8) Red Blood Count 5.64 10^6/uL (4.5-5.90) Hemoglobin 17.2 g/dL (13.5-17.5) Hematocrit 51.2 % (41.0-53.0) Mean Corpuscular Volume 90.7 fL (80.0-100.0) Mean Corpuscular Hemoglobin 30.4 pg (28.0-32.0) Mean Corpuscular Hemoglobin Concent 33.5 g/dL (32.0-36.0) Red Cell Distribution Width 15.2 % (11.8-14.3) Platelet Count 120 10^3/uL (140-450) Mean Platelet Volume 9.2 fL (6.9-10.8) Neutrophils (%) (Auto) 92.9 % (37.0-80.0) Lymphocytes (%) (Auto) 3.3 % (10.0-50.0) Monocytes (%) (Auto) 3.7 % (0.0-12.0) Eosinophils (%) (Auto) 0.0 % (0.0-7.0) Basophils (%) (Auto) 0.1 % (0.0-2.0) Neutrophils # (Auto) 11.1 10 ^3/uL (1.6-8.6) Lymphocytes # (Auto) 0.4 10 ^3/uL (0.4-5.4) Monocytes # (Auto) 0.4 10 ^3/uL (0-1.3) Eosinophils # (Auto) 0 10 ^3/uL (0-0.8) Basophils # (Auto) 0 10 ^3/uL (0-0.2) Nucleated Red Blood Cells 0.1 % Sodium Level 142 mmol/L (136-145) Potassium Level 3.7 mmol/L (3.5-5.1) Chloride Level 108 mmol/L (98-107) Carbon Dioxide Level 22 mmol/L (20-31) Anion Gap 12 (5-15) Blood Urea Nitrogen 18 mg/dL (9-23) Creatinine 1.25 mg/dL (0.700-1.30) Glomerular Filtration Rate Calc 56 mL/min (>90) BUN/Creatinine Ratio 14.4 (10.0-20.0) Serum Glucose 177 mg/dL (74-106) Calcium Level 9.7 mg/dL (8.7-10.4) Total Bilirubin 1.7 mg/dL (0.2-1.0) Aspartate Amino Transferase (AST) 22 U/L (13-40) Alanine Aminotransferase (ALT) 23 U/L (7-40) Alkaline Phosphatase 150 U/L (46-116) Total Protein 6.4 g/dL (5.7-8.2) Albumin 3.8 g/dL (3.2-4.8) Troponin I High Sensitivity 11 ng/L (</=54) Digoxin Level 0.50 ng/mL (0.8-2) B-Type Natriuretic Peptide 123.10 pg/mL (0-100) Other Laboratory Tests 05/15/24 04:55 Brief Hx & Hospital Course: 89 year old male patient past medical history of AFib, CHF, COPD, diabetes mellitus and hypertension presented in the ED with complaints of generalized weakness, shortness of breath, cough and wheezing. Patient was starting on nebulization with ipratropium and albuterol, IV methylprednisolone. Patient was continued on home medication. Patient was started on MiraLax for constipation. Patient mentioned significant improvement in his symptoms. At the time of discharge, patient had stable vitals, no new complaints. Discharge plan was discussed with the patient and patient was advised to follow up with PCP/DC clinic within one week. Patient was prescribed with azithromycin and prednisone for COPD exacerbation Condition at Discharge: Stable Final Diagnosis/Problems List Acute COPD exacerbation AFib CHF Diabetes mellitus type 2 Hypertension Discharge Disposition: Home Discharge Instruct/Medications Follow Up/Referral: Follow up with DC clinic within one week Medications: Azithromycin, prednisolone Discharge Statement: "Patient was advised to return to the ER or call 911 if any headaches, dizziness, shortness of breath, chest pain, abdominal pain, bleeding, fevers, or worsening of medical condition. Patient was counseled about treatment plan, medications, possible side effects, patientverbalized understanding. All questions were answered to the best of my ability. This discharge took greater then 30 minutes in planning, reviewing documentation, counseling the patient, and discussing with other team members." ASSESSMENT ASSESSMENT Assessment Date of Service: May 15, 2024 Billing Provider: RIAZ CARDENAS MD Common Visit Codes: [id number] DISCH DAY <30MIN ZOLTAN FRIAS RESIDENT May 15, 2024 11:30 RIAZ CARDENAS MD May 17, 2024 11:18
[2024-05-15] MEDS ORDERED: AZIT500T PO (11:32)
[2024-05-15] MEDS ORDERED: PRED20TA2 PO (11:32)
[2024-05-15 16:05] VITALS: BP 107/52; PULSE 70; RESP 18; TEMP 97.8; O2SAT 94
[2024-05-15] MEDS ORDERED: TAMSULOSIN HYDROCHLORIDE 0.4 MG CAP PO SCH (18:00)
== END 2024-05-15 17:30 | disposition home or self-care (01) | DRG 192 ==
LOC: EDSEX 14:02 → ER 14:02 → EDBD 14:02 → TELE 17:30
PROVIDERS: ADMIT Nurse Practitioner Family; ATTEND Nurse Practitioner Family
DX: J44.1 Chronic obstructive pulmonary disease with (acute) exacerbation (principal); I11.0 Hypertensive heart disease with heart failure; I50.9 Heart failure, unspecified; I48.91 Unspecified atrial fibrillation; E11.9 Type 2 diabetes mellitus without complications; R26.81 Unsteadiness on feet; Z79.4 Long term (current) use of insulin; Z79.899 Other long term (current) drug therapy
CPT/HCPCS: 36415; 71045; 80048; 80053; 80162; 82962; 83880; 84484; 85025; 94640; G0378; J1815; J3490

== ENCOUNTER 2024-12-23 12:30 | Outpatient (CLI) | payer OTHER, MEDICAID ==
[~2024-12-23 12:30] MED LIST changes: +AZIT500T PO; +PRED20TA2 PO
== END 2024-12-23 17:00 | disposition home or self-care (01) ==
LOC: LAB 12:30
PROVIDERS: ATTEND Internal Medicine
DX: I10 Essential (primary) hypertension (principal); E11.9 Type 2 diabetes mellitus without complications; J44.9 Chronic obstructive pulmonary disease, unspecified
CPT/HCPCS: 36415; 82306; 83036